=== PATIENT | male | born 1950 | race Caucasian/White ===

== ENCOUNTER 2017-02-20 13:33 | Emergency (ER) | payer MEDICARE, BC ==
[2017-02-20] MEDS ORDERED: Sodium Chloride 0.9% 10 ML Syringe FLUSH PRN ×2 (13:56→14:52)
[2017-02-20] MEDS ORDERED: HYDROmorphone 1 MG/ML Syringe IVPUSH ONE (13:57)
[2017-02-20] MEDS ORDERED: Ondansetron 4 MG/2 ML SDV IV ONE (13:57)
[2017-02-20] MEDS ORDERED: Sodium Chloride 0.9% 1,000 ML IV ONE ×2 (13:57→16:16)
[2017-02-20] MEDS ORDERED: Clindamycin Phosphate 900 MG in Sodium Chloride 0.9% 100 ML IV ONE (14:51)
[2017-02-20] MEDS ORDERED: Vancomycin 500 MG SDV IV ONE (14:52)
[2017-02-20] MEDS ORDERED: Meropenem 1 GM in Sodium Chloride 0.9% 100 ML IV ONE (14:53)
[2017-02-20] MEDS ORDERED: Insulin Regular, Human 100 Units/ML 3 ML Vial SUBCUT ONE (15:16)
[2017-02-20] MEDS ORDERED: Vancomycin 2 GM in Sodium Chloride 0.9% 500 ML IV ONE (15:30)
--- NOTE | 2017-02-20 16:44 | EDM.PDOC ---
Scribed by Pao Carmona 02/20/17 [id number] for Nelson Magallanes MD ED HPI GENERAL MEDICAL PROBLEM - General Chief Complaint: Skin Complaint Stated Complaint: [id number] LUMP ON INSIDE OF LEG Time Seen by Provider: 02/20/17 13:52 Source of Information: Reports: Patient, RN, RN Notes Reviewed History Limitations: Reports: No Limitations - History of Present Illness INITIAL COMMENTS - FREE TEXT/NARRATIVE: Patient presents to ER with complaint of pain to the left buttock/scrotum area. He states he has had an ingrown hair that because an abscess in the past. He states he feels this is happening again. Patient states he has been having fever and chills the past few days. Onset: Gradual Duration: Constant, Getting Worse Location: Reports: Other (buttock/scrotum) Quality: Reports: Ache Severity: Severe Improves with: Reports: None Worsens with: Reports: None Associated Symptoms: Reports: No Other Symptoms - Related Data Allergies Allergy/AdvReac Type Severity Reaction Status Date / Time furosemide Allergy Cannot Verified 02/20/17 13:47 Remember nifedipine Allergy Cannot Verified 02/20/17 13:47 Remember rosuvastatin [From Crestor] Allergy Cannot Verified 02/20/17 13:47 Remember CALCIUM CONTAINING COMPOUNDS Allergy Cannot Uncoded 02/20/17 13:47 Remember Home Meds: Home Meds Aspirin [Ecotrin] 81 mg PO DAILY 05/30/16 [History] Doxycycline [Vibramycin] 100 mg PO BID 05/30/16 [History] Hydrochlorothiazide 25 mg PO DAILY 05/30/16 [History] Labetalol [Normodyne] 300 mg PO BID 05/30/16 [History] Losartan [Cozaar] 100 mg PO DAILY 05/30/16 [History] Tamsulosin [Flomax] 0.4 mg PO DAILY 05/30/16 [History] Ubidecarenone [Coenzyme Q-10] 1 cap PO DAILY 05/30/16 [History] atorvaSTATin [Lipitor] 40 mg PO DAILY 05/30/16 [History] cloNIDine [Catapres] 0.2 mg PO TID 05/30/16 [History] metFORMIN HCl [Metformin HCl] 1,000 mg PO BID 05/30/16 [History] Social & Family History - Family History Family Medical History: Noncontributory ED ROS GENERAL - Review of Systems Review Of Systems: ROS reveals no pertinent complaints other than HPI. ED EXAM, SKIN/RASH Exam: See Below Exam Limited By: No Limitations General Appearance: Alert, WD/WN, No Apparent Distress, Obese, Other (acutely ill but nontoxic appearing) Eye Exam: Bilateral Eye: Normal Inspection Ears: Normal External Exam, Hearing Grossly Normal Nose: Normal Inspection, Normal Mucosa, No Blood Throat/Mouth: Normal Lips, Normal Gums, Normal Oropharynx, Normal Voice, No Airway Compromise, Other (dry oral membranes) Head: Atraumatic, Normocephalic Neck: Normal Inspection, Supple, Non-Tender, Full Range of Motion Respiratory/Chest: No Respiratory Distress, Lungs Clear, Normal Breath Sounds, No Accessory Muscle Use, Chest Non-Tender Cardiovascular: Normal Peripheral Pulses, Regular Rate, Rhythm, No Edema, No Gallop, No JVD, No Murmur, No Rub, Tachycardia GI/Abdominal: Normal Bowel Sounds, Soft, Non-Tender, No Organomegaly, No Distention, No Abnormal Bruit, No Mass (Male) Exam: Other (Left scrotum swollen/edematous/painful erythematous/ warm. Extends into the left buttock. Subcutaneous crepitus. ) Back Exam: Normal Inspection, Full Range of Motion, NT Extremities: Normal Inspection, Normal Range of Motion, Non-Tender, No Pedal Edema, Normal Capillary Refill Neurological: Alert, Oriented, CN II-XII Intact, Normal Cognition, Normal Gait, Normal Reflexes, No Motor/Sensory Deficits Psychiatric: Normal Affect, Normal Mood Skin: Warm, Dry Course - Vital Signs Last Recorded V/S: Last Vital Signs Temp 37.0 C 02/20/17 13:53 Pulse 101 H 02/20/17 13:53 Resp 20 02/20/17 13:53 BP 179/94 H 02/20/17 13:53 Pulse Ox 98 02/20/17 13:53 - Orders/Labs/Meds Orders: Active Orders 24 hr Category Date Time Status Blood Glucose Check, Bedside [RC] ONETIME Care 02/20/17 13:56 Active Peripheral IV Care [RC] . DIRECTED Care 02/20/17 13:57 Active Peripheral IV Care [RC] . DIRECTED Care 02/20/17 14:53 Active Pelvis wo Cont [CT] Urgent Exams 02/20/17 14:54 Ordered Pelvis wo Cont [CT] Urgent Exams 02/20/17 14:54 Taken CULTURE BLOOD [BC] Stat Lab 02/20/17 14:10 Results CULTURE BLOOD [BC] Stat Lab 02/20/17 14:18 Results UA W/MICROSCOPIC [URIN] Stat Lab 02/20/17 16:38 Ordered Sodium Chloride 0.9% [Normal Saline] 1,000 ml Med 02/20/17 16:16 Active IV .BOLUS Sodium Chloride 0.9% [Saline Flush] Med 02/20/17 13:56 Active 10 ml FLUSH ASDIRECTED PRN Sodium Chloride 0.9% [Saline Flush] Med 02/20/17 14:52 Active 10 ml FLUSH ASDIRECTED PRN Vancomycin 2 gm Med 02/20/17 15:30 Active Sodium Chloride 0.9% [Normal Saline] 500 ml IV ONETIME Blood Culture x2 Reflex Set [OM.PC] Stat Oth 02/20/17 13:56 Ordered Peripheral IV Insertion Adult [OM.PC] Stat Oth 02/20/17 13:56 Ordered Peripheral IV Insertion Adult [OM.PC] Stat Oth 02/20/17 14:53 Ordered Medication Orders Vancomycin HCl 2 gm/ Sodium (Chloride) 500 mls @ 333.333 mls/hr IV ONETIME ONE Stop: 02/20/17 16:59 Last Admin: 02/20/17 16:01 Dose: 333.333 mls/hr Sodium Chloride (Normal Saline) 1,000 mls @ 999 mls/hr IV .BOLUS ONE Stop: 02/20/17 17:16 Last Admin: 02/20/17 16:34 Dose: 999 mls/hr Sodium Chloride (Saline Flush) 10 ml FLUSH ASDIRECTED PRN PRN Reason: Keep Vein Open Last Admin: 02/20/17 14:33 Dose: 10 ml Sodium Chloride (Saline Flush) 10 ml FLUSH ASDIRECTED PRN PRN Reason: Keep Vein Open Labs: Laboratory Tests 02/20/17 02/20/17 02/20/17 Range/Units 14:18 14:18 14:18 WBC 20.9 H (5.0-10.0) 10^3/uL RBC 4.77 (4.6-6.2) 10^6/uL Hgb 13.7 L (14.0-18.0) g/dL Hct 40.7 (40.0-54.0) % MCV 85.3 (80-100) fL MCH 28.7 (27.0-34.0) pg MCHC 33.7 (33.0-35.0) g/dL Plt Count 229 (150-450) 10^3/uL Neut % (Auto) 87.8 H (42.2-75.2) % Lymph % (Auto) 5.2 L (20.5-50.1) % Tate % (Auto) 6.9 (2-8) % Eos % (Auto) 0.0 L (1.0-3.0) % Baso % (Auto) 0.1 (0.0-1.0) % Sodium 130 L (135-145) mmol/L Potassium 4.6 (3.6-5.0) mmol/L Chloride 87 L (101-111) mmol/L Carbon Dioxide 25.0 (21.0-31.0) mmol/L Anion Gap 22.6 BUN 28 H (7-18) mg/dL Creatinine 1.4 H (0.6-1.3) mg/dL Est Cr Clr Drug Dosing 52.60 mL/min Estimated GFR (MDRD) 51 BUN/Creatinine Ratio 20.00 Glucose 488 H* (74-105) mg/dL Lactic Acid 3.0 H (0.5-2.2) mmol/L Calcium 10.0 (8.4-10.2) mg/dl Total Bilirubin 0.7 (0.2-1.0) mg/dL AST 22 (10-42) IU/L ALT 15 (10-60) IU/L Alkaline Phosphatase 95 (42-121) IU/L C-Reactive Protein (0.0-1.3) mg/dL Total Protein 7.3 (6.7-8.2) g/dl Albumin 2.9 L (3.2-5.5) g/dl Globulin 4.4 Albumin/Globulin Ratio 0.66 /12/30 Range/Units 14:18 WBC (5.0-10.0) 10^3/uL RBC (4.6-6.2) 10^6/uL Hgb (14.0-18.0) g/dL Hct (40.0-54.0) % MCV (80-100) fL MCH (27.0-34.0) pg MCHC (33.0-35.0) g/dL Plt Count (150-450) 10^3/uL Neut % (Auto) (42.2-75.2) % Lymph % (Auto) (20.5-50.1) % Tate % (Auto) (2-8) % Eos % (Auto) (1.0-3.0) % Baso % (Auto) (0.0-1.0) % Sodium (135-145) mmol/L Potassium (3.6-5.0) mmol/L Chloride (101-111) mmol/L Carbon Dioxide (21.0-31.0) mmol/L Anion Gap BUN (7-18) mg/dL Creatinine (0.6-1.3) mg/dL Est Cr Clr Drug Dosing mL/min Estimated GFR (MDRD) BUN/Creatinine Ratio Glucose (74-105) mg/dL Lactic Acid (0.5-2.2) mmol/L Calcium (8.4-10.2) mg/dl Total Bilirubin (0.2-1.0) mg/dL AST (10-42) IU/L ALT (10-60) IU/L Alkaline Phosphatase (42-121) IU/L C-Reactive Protein > 20.0 H (0.0-1.3) mg/dL Total Protein (6.7-8.2) g/dl Albumin (3.2-5.5) g/dl Globulin Albumin/Globulin Ratio Meds: Medications Generic Name Dose Route Start Last Admin Trade Name Freq PRN Reason Stop Dose Admin Vancomycin HCl 2 gm/ Sodium 500 mls @ 333.333 mls/hr 02/20/17 15:30 02/20/17 16:01 Chloride IV 02/20/17 16:59 333.333 mls/hr ONETIME ONE Administration Sodium Chloride 1,000 mls @ 999 mls/hr 02/20/17 16:16 02/20/17 16:34 Normal Saline IV 02/20/17 17:16 999 mls/hr .BOLUS ONE Administration Sodium Chloride 10 ml 02/20/17 13:56 02/20/17 14:33 Saline Flush FLUSH 10 ml ASDIRECTED PRN Administration Keep Vein Open Sodium Chloride 10 ml 02/20/17 14:52 Saline Flush FLUSH ASDIRECTED PRN Keep Vein Open Discontinued Medications Generic Name Dose Route Start Last Admin Trade Name Shaye PRN Reason Stop Dose Admin Hydromorphone HCl 1 mg 02/20/17 13:57 02/20/17 14:31 Dilaudid IVPUSH 02/20/17 13:58 1 mg ONETIME ONE Administration Sodium Chloride 1,000 mls @ 999 mls/hr 02/20/17 13:57 02/20/17 14:32 Normal Saline IV 02/20/17 14:57 999 mls/hr .BOLUS ONE Administration Clindamycin Phosphate 900 mg/ 106 mls @ 200 mls/hr 02/20/17 14:51 02/20/17 16 :07 Sodium Chloride IV 02/20/17 15:22 200 mls/hr ONETIME ONE Administration Meropenem 1 gm/ Sodium 100 mls @ 200 mls/hr 02/20/17 14:53 02/20/17 15:19 Chloride IV 02/20/17 15:22 200 mls/hr ONETIME ONE Administration Insulin Human Regular 10 unit 02/20/17 15:16 02/20/17 15:51 Humulin R SUBCUT 02/20/17 15:17 10 units ONETIME ONE Administration Protocol Ondansetron HCl 4 mg 02/20/17 13:57 02/20/17 14:32 Zofran IV 02/20/17 13:58 4 mg ONETIME ONE Administration - Radiology Interpretation Free Text/Narrative:: CT Pelvis: Consistent with scrotal and perineal area. See rad report. Departure - Departure Time of Disposition: 16:36 Disposition: DC/Tfer to Acute Hospital 02 Condition: Critical Clinical Impression: Necrotizing fasciitis, Cellulitis of scrotum, Sepsis - Discharge Information Referrals: Aj Rick MD [Primary Care Provider] - Forms: ED Department Discharge, Interfacility Transfer EMTALA - My Orders Last 24 Hours: My Active Orders 02/20/17 13:56 Blood Glucose Check, Bedside [RC] ONETIME Sodium Chloride 0.9% [Saline Flush] 10 ml FLUSH ASDIRECTED PRN Blood Culture x2 Reflex Set [OM.PC] Stat Peripheral IV Insertion Adult [OM.PC] Stat 02/20/17 13:57 Peripheral IV Care [RC] . DIRECTED 02/20/17 14:10 CULTURE BLOOD [BC] Stat 02/20/17 14:18 CULTURE BLOOD [BC] Stat 02/20/17 16:38 UA W/MICROSCOPIC [URIN] Stat - Assessment/Plan Last 24 Hours: My Active Orders 02/20/17 13:56 Blood Glucose Check, Bedside [RC] ONETIME Sodium Chloride 0.9% [Saline Flush] 10 ml FLUSH ASDIRECTED PRN Blood Culture x2 Reflex Set [OM.PC] Stat Peripheral IV Insertion Adult [OM.PC] Stat 02/20/17 13:57 Peripheral IV Care [RC] . DIRECTED 02/20/17 14:10 CULTURE BLOOD [BC] Stat 02/20/17 14:18 CULTURE BLOOD [BC] Stat 02/20/17 16:38 UA W/MICROSCOPIC [URIN] Stat I have read and agree with the documentation that has been completed regarding this visit. By signing this record, I attest that the documentation was completed in my physical presence and is an accurate record of the encounter.
--- NOTE | 2017-02-20 16:47 | CT ---
Clinical history: 67-year-old obese diabetic male with fever/chills, WBC greater than 20,000, and cli nical "cellulitis". Fasciitis? Scan technique: Volume acquisition of data emergency unenhanced CT scan of the pelvis groin and scrot um obtained with patient lying supine on the Siemens multi slice CT scanner [place], [place]. All data archived in the PACS system for storage, reformatting and study. Interpretation: Abnormal. 1. Extensive collection of subcutaneous gas) largest collection measures 18 x 4.5 cm) involving butto cks primarily on the left that extends up near the anus and into the scrotum. Necrotizing fasciitis a nd/or abscess strong consideration. 2. Surrounding edema left buttocks/groin and diffuse scrotal wall thickening. (Small amount of scrota l air on the right) No current evidence of inguinal, pelvic or intraperitoneal extension of the inflammatory process. 3. Symmetrically normal appearing testicles. 4. Bilateral total hip prostheses. No other foreign bodies. 5. Multilevel lower lumbar disc disease and hypertrophic arthritic changes of the spine. CONCLUSION: Necrotizing fasciitis peroneum (left greater than right) and scrotum.
[2017-02-20 17:45] VITALS: BP 148/72
== END 2017-02-20 16:45 ==
LOC: DL.ED 13:33
DX: A41.9 Sepsis, unspecified organism (principal); M72.6 Necrotizing fasciitis; N49.2 Inflammatory disorders of scrotum; Z88.8 Allergy status to other drugs, medicaments and biological substances; Z79.82 Long term (current) use of aspirin; Z79.899 Other long term (current) drug therapy
CPT/HCPCS: 36415; 72192; 80053; 81001; 83605; 85025; 86140; 87040; 96365; 96366; 96367; 96375; 99284; J1170; J1815; J2185; J2405; J3370; J7030; J7040; J7050; S0077

== ENCOUNTER 2017-03-11 11:50 | Emergency (ER) | payer MEDICARE, BC ==
[2017-03-11 13:00] VITALS: BP 117/82
[2017-03-11] MEDS ORDERED: Penicillin G Benzathine/Procaine 600-600 1.2 Millunits/2 ML Syringe IM ONE (13:18)
--- NOTE | 2017-03-11 13:36 | EDM.PDOC ---
ED HPI GENERAL MEDICAL PROBLEM - General Chief Complaint: ENT Problem Stated Complaint: SENT BY DR PATTERSON Time Seen by Provider: 03/11/17 13:27 Source of Information: Reports: Patient, RN, RN Notes Reviewed History Limitations: Reports: No Limitations - History of Present Illness INITIAL COMMENTS - FREE TEXT/NARRATIVE: Patient presents to the ER with c/o throat pain. He states this began last evening and has progressively gotten worse. He denies fever, chills, chest pain sob, nausea and vomiting. Patient denies pain in the ear or sinus drainage. He states he has been having a non-productive cough. Onset: Gradual Onset Date: 03/10/17 Location: Reports: Other (throat) Quality: Reports: Ache Severity: Mild Improves with: Reports: None Worsens with: Reports: None Associated Symptoms: Reports: No Other Symptoms Throat Pain Score (Numeric/FACES): 4 - Related Data Allergies Allergy/AdvReac Type Severity Reaction Status Date / Time furosemide Allergy Cannot Verified 03/11/17 12:50 Remember nifedipine Allergy Cannot Verified 03/11/17 12:50 Remember rosuvastatin [From Crestor] Allergy Cannot Verified 03/11/17 12:50 Remember CALCIUM CONTAINING COMPOUNDS Allergy Cannot Uncoded 03/11/17 12:50 Remember Home Meds: Home Meds Aspirin [Ecotrin] 81 mg PO DAILY 05/30/16 [History] Hydrochlorothiazide 25 mg PO DAILY PRN 05/30/16 [History] Labetalol [Normodyne] 300 mg PO Q8HR 05/30/16 [History] Tamsulosin [Flomax] 0.4 mg PO DAILY 05/30/16 [History] Ubidecarenone [Coenzyme Q-10] 1 cap PO DAILY 05/30/16 [History] atorvaSTATin [Lipitor] 40 mg PO DAILY 05/30/16 [History] Acetaminophen/oxyCODONE [Percocet 325-5 MG] 1 tab PO Q6HR PRN 03/01/17 [History] Cholecalciferol (Vitamin D3) [Vitamin D3] 1,000 unit PO DAILY 03/01/17 [History] Insulin Glargine,Hum.Rec.Anlog [Lantus Solostar] 45 units SQ QPM 03/01/17 [ History] Multivitamin [Multi-Day Vitamins] 1 each PO DAILY 03/01/17 [History] SitaGLIPtin [Januvia] 50 mg PO DAILY 03/01/17 [History] glipiZIDE [Glipizide Xl] 5 mg PO DAILY 03/01/17 [History] cloNIDine HCl [Catapres] 0.4 mg PO BID 03/03/17 [History] Past Medical History Cardiovascular History: Reports: High Cholesterol, Hypertension Musculoskeletal History: Reports: Back Pain, Chronic Endocrine/Metabolic History: Reports: Diabetes, Type II Dermatologic History: Reports: Cellulitis, Other (See Below) Other Dermatologic History: ingrown hair-proceeded to gangrene-debridement- wound vac to be placed. - Infectious Disease History Infectious Disease History: Reports: Chicken Pox - Past Surgical History Musculoskeletal Surgical History: Reports: Hip Replacement, Other (See Below) Other Musculoskeletal Surgeries/Procedures:: Back Surgery Social & Family History - Family History Family Medical History: Noncontributory - Tobacco Use Smoking Status *Q: Former Smoker Used Tobacco, but Quit: Yes Month Tobacco Last Used: unknown Second Hand Smoke Exposure: No - Caffeine Use Caffeine Use: Reports: Coffee - Recreational Drug Use Recreational Drug Use: No ED ROS GENERAL - Review of Systems Review Of Systems: ROS reveals no pertinent complaints other than HPI. ED EXAM, GI/ABD - Physical Exam Exam: See Below Exam Limited By: No Limitations General Appearance: Alert, WD/WN, No Apparent Distress Eyes: Bilateral: Normal Appearance Ears: Normal External Exam, Normal Canal, Hearing Grossly Normal, Normal TMs Nose: Normal Inspection, Normal Mucosa, No Blood Throat/Mouth: Normal Teeth, Normal Gums, Normal Voice, No Airway Compromise, Inflammation, Other Head: Atraumatic, Normocephalic Neck: Normal Inspection, Supple, Non-Tender, Full Range of Motion Respiratory/Chest: No Respiratory Distress, Lungs Clear, Normal Breath Sounds, No Accessory Muscle Use, Chest Non-Tender Cardiovascular: Normal Peripheral Pulses, Regular Rate, Rhythm, No Edema, No Gallop, No JVD, No Murmur, No Rub GI/Abdominal Exam: Normal Bowel Sounds, Soft, Non-Tender, No Organomegaly, No Distention, No Abnormal Bruit, No Mass, Pelvis Stable (Male) Exam: Deferred Rectal (Males) Exam: Deferred Back Exam: Normal Inspection, Full Range of Motion Extremities: Normal Inspection, Normal Range of Motion, Non-Tender, No Pedal Edema, Normal Capillary Refill Neurological: Alert, Oriented, Normal Cognition, Normal Gait, Normal Reflexes, No Motor/Sensory Deficits Psychiatric: Normal Affect, Normal Mood Skin Exam: Warm, Dry, Intact, Normal Color, No Rash Lymphatic: No Adenopathy Course - Vital Signs Last Recorded V/S: Last Vital Signs Temp 97.4 F 03/11/17 12:56 Pulse 79 03/11/17 12:56 Resp 20 03/11/17 12:56 BP 117/82 03/11/17 12:56 Pulse Ox 99 03/11/17 12:56 - Orders/Labs/Meds Meds: Medications Discontinued Medications Generic Name Dose Route Start Last Admin Trade Name Freq PRN Reason Stop Dose Admin Penicillin G Procaine/Benzathine 1.2 millunits 03/11/17 13:18 Bicillin C-R 600/600 IM 03/11/17 13:19 ONETIME ONE Departure - Departure Time of Disposition: 13:37 Disposition: Home, Self-Care 01 Condition: Good Clinical Impression: Streptococcus pharyngitis - Discharge Information Instructions: Strep Throat, [id number] Additional Instructions: Follow up with your primary care provider. Azithromycin 500mg orally once today Azithromycin 250mg orally once daily x 4 days Salt water gargles Tylenol every 4 hours as needed for pain or fever Ibuprofen every 6-8 hours as needed for pain or fever
== END 2017-03-11 13:48 | disposition home or self-care (01) ==
LOC: DL.ED 11:50
DX: J02.0 Streptococcal pharyngitis (principal); E78.00 Pure hypercholesterolemia, unspecified; I10 Essential (primary) hypertension; E11.9 Type 2 diabetes mellitus without complications; Z88.8 Allergy status to other drugs, medicaments and biological substances; Z79.899 Other long term (current) drug therapy; Z79.82 Long term (current) use of aspirin; Z79.4 Long term (current) use of insulin; Z87.891 Personal history of nicotine dependence
CPT/HCPCS: 87430; 96372; 99283; J0558

== ENCOUNTER 2017-03-21 20:04 | Emergency (ER) | payer MEDICARE, BC ==
--- NOTE | 2017-03-21 22:50 | EDM.PDOC ---
ED HPI GENERAL MEDICAL PROBLEM - General Chief Complaint: Cardiovascular Problem Stated Complaint: CHECK ON BLOOD PRESSURE [id number] Time Seen by Provider: 03/21/17 20:45 Source of Information: Reports: Patient, Family History Limitations: Reports: No Limitations - History of Present Illness INITIAL COMMENTS - FREE TEXT/NARRATIVE: C/o feeling dizzy and low blood pressure at home. Notes wound to groin that he is having dressing changes de luna twice daily. Recent change in BP medications. - Related Data Allergies Allergy/AdvReac Type Severity Reaction Status Date / Time furosemide Allergy Cannot Verified 03/21/17 08:39 Remember nifedipine Allergy Cannot Verified 03/21/17 08:39 Remember rosuvastatin [From Crestor] Allergy Cannot Verified 03/21/17 08:39 Remember CALCIUM CONTAINING COMPOUNDS Allergy Cannot Uncoded 03/21/17 08:39 Remember Home Meds: Home Meds Aspirin [Ecotrin] 81 mg PO DAILY 05/30/16 [History] Hydrochlorothiazide 25 mg PO DAILY PRN 05/30/16 [History] Labetalol [Normodyne] 300 mg PO Q8HR 05/30/16 [History] Tamsulosin [Flomax] 0.4 mg PO DAILY 05/30/16 [History] Ubidecarenone [Coenzyme Q-10] 1 cap PO DAILY 05/30/16 [History] atorvaSTATin [Lipitor] 40 mg PO DAILY 05/30/16 [History] Acetaminophen/oxyCODONE [Percocet 325-5 MG] 1 tab PO Q6HR PRN 03/01/17 [History] Cholecalciferol (Vitamin D3) [Vitamin D3] 1,000 unit PO DAILY 03/01/17 [History] Insulin Glargine,Hum.Rec.Anlog [Lantus Solostar] 45 units SQ QPM 03/01/17 [ History] SitaGLIPtin [Januvia] 50 mg PO DAILY 03/01/17 [History] glipiZIDE [Glipizide Xl] 5 mg PO DAILY 03/01/17 [History] cloNIDine HCl [Catapres] 0.4 mg PO BID 03/03/17 [History] Past Medical History Cardiovascular History: Reports: High Cholesterol, Hypertension Musculoskeletal History: Reports: Back Pain, Chronic Endocrine/Metabolic History: Reports: Diabetes, Type II Dermatologic History: Reports: Cellulitis, Other (See Below) Other Dermatologic History: ingrown hair-proceeded to gangrene-debridement- wound vac to be placed. - Infectious Disease History Infectious Disease History: Reports: Chicken Pox - Past Surgical History Musculoskeletal Surgical History: Reports: Hip Replacement, Other (See Below) Other Musculoskeletal Surgeries/Procedures:: Back Surgery Social & Family History - Family History Family Medical History: Noncontributory - Tobacco Use Smoking Status *Q: Never Smoker Used Tobacco, but Quit: Yes Month Tobacco Last Used: unknown Second Hand Smoke Exposure: No - Caffeine Use Caffeine Use: Reports: Coffee - Recreational Drug Use Recreational Drug Use: No ED ROS GENERAL - Review of Systems Review Of Systems: See Below Constitutional: Denies: Fever HEENT: Reports: No Symptoms Respiratory: Reports: No Symptoms Cardiovascular: Reports: Lightheadedness. Denies: Palpitations GI/Abdominal: Reports: No Symptoms Skin: Reports: Wound (Deep wpund to left groin from pelvic abscess) ED EXAM, GENERAL - Physical Exam Exam: See Below Exam Limited By: No Limitations General Appearance: Alert, No Apparent Distress Eye Exam: Bilateral Eye: EOMI, PERRL Ears: Normal External Exam, Normal TMs Nose: Normal Inspection Throat/Mouth: Normal Inspection Head: Atraumatic, Normocephalic Neck: Normal Inspection, Non-Tender, Full Range of Motion Respiratory/Chest: No Respiratory Distress, Lungs Clear, Normal Breath Sounds Cardiovascular: Normal Peripheral Pulses, Regular Rate, Rhythm GI/Abdominal: Normal Bowel Sounds, Soft. No: Non-Tender (mild suprapubic) Extremities: Leg Pain (left upper) Skin Exam: Warm, Wound/Incision (deep wound left groin mild erythema to base , packing moist, scant serous yellow discharge. ) Course - Vital Signs Last Recorded V/S: Last Vital Signs Temp 97.4 F 03/22/17 02:00 Pulse 88 03/22/17 02:00 Resp 16 03/22/17 02:00 BP 106/74 03/22/17 02:00 Pulse Ox 100 03/22/17 02:00 Orthostatic Blood Pressure [ 141/68 Standing] Orthostatic Blood Pressure [ 143/75 Sitting] Orthostatic Blood Pressure [ 105/91 Supine] - Orders/Labs/Meds Labs: Laboratory Tests 03/21/17 03/21/17 03/21/17 Range/Units 21:40 21:40 21:40 WBC 9.9 (5.0-10.0) 10^3/uL RBC 4.26 L (4.6-6.2) 10^6/uL Hgb 12.0 L D (14.0-18.0) g/dL Hct 36.5 L (40.0-54.0) % MCV 85.7 (80-100) fL MCH 28.2 (27.0-34.0) pg MCHC 32.9 L (33.0-35.0) g/dL Plt Count 249 (150-450) 10^3/uL Neut % (Auto) 55.3 (42.2-75.2) % Lymph % (Auto) 29.3 (20.5-50.1) % Candler % (Auto) 10.4 H (2-8) % Eos % (Auto) 4.7 H (1.0-3.0) % Baso % (Auto) 0.3 (0.0-1.0) % PT 10.5 (9.0-12.0) SEC INR 1.0 (0.9-1.2) Sodium 136 (135-145) mmol/L Potassium 4.4 (3.6-5.0) mmol/L Chloride 96 L (101-111) mmol/L Carbon Dioxide 27.0 (21.0-31.0) mmol/L Anion Gap 17.4 BUN 49 H (7-18) mg/dL Creatinine 1.9 H (0.6-1.3) mg/dL Est Cr Clr Drug Dosing 38.76 mL/min Estimated GFR (MDRD) 36 BUN/Creatinine Ratio 25.78 Glucose 278 H (74-105) mg/dL Lactic Acid (0.5-2.2) mmol/L Calcium 9.5 (8.4-10.2) mg/dl Total Bilirubin 0.3 (0.2-1.0) mg/dL AST 28 (10-42) IU/L ALT 43 (10-60) IU/L Alkaline Phosphatase 79 (42-121) IU/L CK-MB (CK-2) (0.4-4.7) ng/mL Troponin I 0.02 (0.00-0.02) ng/ml C-Reactive Protein (0.0-1.3) mg/dL Total Protein 7.5 (6.7-8.2) g/dl Albumin 3.4 (3.2-5.5) g/dl Globulin 4.1 Albumin/Globulin Ratio 0.83 03/21/17 03/21/17 03/21/17 Range/Units 21:40 21:40 21:40 WBC (5.0-10.0) 10^3/uL RBC (4.6-6.2) 10^6/uL Hgb (14.0-18.0) g/dL Hct (40.0-54.0) % MCV (80-100) fL MCH (27.0-34.0) pg MCHC (33.0-35.0) g/dL Plt Count (150-450) 10^3/uL Neut % (Auto) (42.2-75.2) % Lymph % (Auto) (20.5-50.1) % Candler % (Auto) (2-8) % Eos % (Auto) (1.0-3.0) % Baso % (Auto) (0.0-1.0) % PT (9.0-12.0) SEC INR (0.9-1.2) Sodium (135-145) mmol/L Potassium (3.6-5.0) mmol/L Chloride (101-111) mmol/L Carbon Dioxide (21.0-31.0) mmol/L Anion Gap BUN (7-18) mg/dL Creatinine (0.6-1.3) mg/dL Est Cr Clr Drug Dosing mL/min Estimated GFR (MDRD) BUN/Creatinine Ratio Glucose (74-105) mg/dL Lactic Acid 1.3 (0.5-2.2) mmol/L Calcium (8.4-10.2) mg/dl Total Bilirubin (0.2-1.0) mg/dL AST (10-42) IU/L ALT (10-60) IU/L Alkaline Phosphatase (42-121) IU/L CK-MB (CK-2) 2.10 (0.4-4.7) ng/mL Troponin I (0.00-0.02) ng/ml C-Reactive Protein 0.9 (0.0-1.3) mg/dL Total Protein (6.7-8.2) g/dl Albumin (3.2-5.5) g/dl Globulin Albumin/Globulin Ratio - Re-Assessments/Exams Free Text/Narrative Re-Assessment/Exam: 03/23/17 06:58 No orthostatic changes or signs of sepsis. TC consult with Dr Dyer, Continue to monitor BP decres Labetolol. Clinic early week. Patient and agreeable with plan. Departure - Departure Time of Disposition: 01:22 Disposition: Home, Self-Care 01 Clinical Impression: Groin abscess Hypotension Qualifiers: Hypotension type: unspecified hypotension type Qualified Code(s): I95.9 - Hypotension, unspecified Instructions: Hypotension, [id number] Referrals: Aj Rick MD [Primary Care Provider] - Forms: ED Department Discharge Additional Instructions: Decrease Bumex every other day Labetolol 100mg twice daily Recheck blood pressures twice daily follow up if less than 90 systolic and greater than 160/
[2017-03-22 01:44] VITALS: BP 106/74
--- NOTE | 2017-03-25 15:03 | EKG ---
03/21/2017- BARBIE HURTADO - A 12-lead EKG shows atrial fibrillation with heart rate of 91. Ventricular premature complexes noted. No significant ST elevation or ST depression noted on this 12-lead EKG. [facility] /[id number]
== END 2017-03-22 02:03 | disposition home or self-care (01) ==
LOC: DL.ED 20:04
DX: I95.9 Hypotension, unspecified (principal); L02.214 Cutaneous abscess of groin; I10 Essential (primary) hypertension; E78.00 Pure hypercholesterolemia, unspecified; E11.9 Type 2 diabetes mellitus without complications; Z96.649 Presence of unspecified artificial hip joint; Z98.890 Other specified postprocedural states; Z87.891 Personal history of nicotine dependence; Z79.4 Long term (current) use of insulin; Z79.899 Other long term (current) drug therapy; Z79.82 Long term (current) use of aspirin; Z88.8 Allergy status to other drugs, medicaments and biological substances; N49.3 Fournier gangrene
CPT/HCPCS: 36415; 71010; 74176; 80053; 82553; 83605; 84484; 85025; 85610; 86140; 93005; 93010; 99211; 99284; 99285

== ENCOUNTER 2017-07-21 19:59 | Inpatient (IN) | payer MEDICARE, BC ==
[2017-07-21] MEDS ORDERED: Vancomycin 1 GM in Sodium Chloride 0.9% 500 ML IV ONE (21:20)
--- NOTE | 2017-07-21 21:51 | EDM.PDOC ---
ED HPI GENERAL MEDICAL PROBLEM - General Chief Complaint: Skin Complaint Stated Complaint: LEFT SIDE OF FACE SWOLLEN [id number] Time Seen by Provider: 07/21/17 20:10 Source of Information: Reports: Patient History Limitations: Reports: No Limitations - History of Present Illness INITIAL COMMENTS - FREE TEXT/NARRATIVE: This 67 yo male patient reports to the ED with swelling to the left side of his face. The patient reports the symptoms started yesterday and have gotten much worse since then. The patient reports he has had a history of cellulitis for which he has been admitted in the past. Onset Date: 07/20/17 Duration: Constant, Getting Worse Location: Reports: Face (left side of face) Quality: Reports: Ache, Dull Severity: Moderate Improves with: Reports: None Worsens with: Reports: None Left Face Pain Score (Numeric/FACES): 5 - Related Data Allergies Allergy/AdvReac Type Severity Reaction Status Date / Time furosemide Allergy Cannot Verified 07/21/17 20:05 Remember nifedipine Allergy Cannot Verified 07/21/17 20:05 Remember rosuvastatin [From Crestor] Allergy Cannot Verified 07/21/17 20:05 Remember CALCIUM CONTAINING COMPOUNDS Allergy Cannot Uncoded 07/21/17 20:05 Remember Home Meds: Home Meds Aspirin [Ecotrin] 81 mg PO DAILY 05/30/16 [History] Ubidecarenone [Coenzyme Q-10] 1 cap PO DAILY 05/30/16 [History] atorvaSTATin [Lipitor] 40 mg PO DAILY 05/30/16 [History] Cholecalciferol (Vitamin D3) [Vitamin D3] 1,000 unit PO DAILY 03/01/17 [History] Insulin Glargine,Hum.Rec.Anlog [Lantus Solostar] 50 units SQ QPM 03/01/17 [ History] SitaGLIPtin [Januvia] 50 mg PO DAILY 03/01/17 [History] glipiZIDE [Glipizide Xl] 10 mg PO DAILY 03/01/17 [History] Labetalol [Normodyne] 100 mg PO BID 03/23/17 [History] Past Medical History Cardiovascular History: Reports: High Cholesterol, Hypertension Musculoskeletal History: Reports: Back Pain, Chronic Endocrine/Metabolic History: Reports: Diabetes, Type II, Obesity/BMI 30+ Dermatologic History: Reports: Cellulitis, Other (See Below) Other Dermatologic History: ingrown hair-proceeded to gangrene-debridement- wound vac to be placed. - Infectious Disease History Infectious Disease History: Reports: Chicken Pox - Past Surgical History Musculoskeletal Surgical History: Reports: Hip Replacement, Other (See Below) Other Musculoskeletal Surgeries/Procedures:: Back Surgery Social & Family History - Family History Family Medical History: Noncontributory - Tobacco Use Smoking Status *Q: Current Every Day Smoker Years of Tobacco use: 30 Packs/Tins Daily: 0.1 Used Tobacco, but Quit: Yes Month Tobacco Last Used: unknown Second Hand Smoke Exposure: No - Caffeine Use Caffeine Use: Reports: Coffee - Recreational Drug Use Recreational Drug Use: No ED ROS GENERAL - Review of Systems Review Of Systems: ROS reveals no pertinent complaints other than HPI. ED EXAM, SKIN/RASH Exam: See Below Exam Limited By: No Limitations General Appearance: Alert, WD/WN, Mild Distress Eye Exam: Left Eye: Other (lower eyelid inflammation and erythema), Bilateral Eye: EOMI, PERRL Ears: Normal External Exam, Normal Canal, Hearing Grossly Normal, Normal TMs Nose: Normal Mucosa, No Blood, Other (left lateral swelling (external)) Throat/Mouth: Normal Inspection, Normal Lips, Normal Teeth, Normal Gums, Normal Oropharynx, Normal Voice, No Airway Compromise Head: Atraumatic, Normocephalic Neck: Full Range of Motion, Lymphadenopathy (L) Respiratory/Chest: No Respiratory Distress, Lungs Clear, Normal Breath Sounds, No Accessory Muscle Use, Chest Non-Tender Cardiovascular: Normal Peripheral Pulses, Regular Rate, Rhythm, No Edema, No Gallop, No JVD, No Murmur, No Rub GI/Abdominal: Normal Bowel Sounds, Soft, Non-Tender, No Organomegaly, No Distention, No Abnormal Bruit, No Mass, Other (obese) (Male) Exam: Deferred Rectal (Males) Exam: Deferred Back Exam: Normal Inspection, Full Range of Motion, NT Extremities: Normal Inspection, Normal Range of Motion, Non-Tender, No Pedal Edema, Normal Capillary Refill Neurological: Alert, Oriented, CN II-XII Intact, Normal Cognition, Normal Gait, Normal Reflexes, No Motor/Sensory Deficits Psychiatric: Normal Affect, Normal Mood Skin: Erythema Location, Skin: Face Characteristics: Confluent, Erythematous Associated features: Warmth, Tenderness, Swelling, Inflammation. No: Crusting, Weeping Lymphatic: No Adenopathy Course - Vital Signs Last Recorded V/S: Last Vital Signs Temp 36.6 C 07/21/17 20:01 Pulse 116 H 07/21/17 20:01 Resp 18 07/21/17 20:01 BP 157/83 H 07/21/17 20:01 Pulse Ox 98 07/21/17 20:01 - Orders/Labs/Meds Orders: Active Orders 24 hr Category Date Time Status Max Facial Sinus wo Cont [CT] Urgent Exams 07/21/17 21:28 Ordered CULTURE BLOOD [BC] Stat Lab 07/21/17 20:34 Received CULTURE BLOOD [BC] Stat Lab 07/21/17 20:37 Results Vancomycin 1 gm Med 07/21/17 21:20 Active Sodium Chloride 0.9% [Normal Saline] 500 ml IV ONETIME Blood Culture x2 Reflex Set [OM.PC] Stat Oth 07/21/17 20:21 Ordered Medication Orders Vancomycin HCl 1 gm/ Sodium (Chloride) 500 mls @ 334 mls/hr IV ONETIME ONE Stop: 07/21/17 22:49 Labs: Laboratory Tests 07/21/17 07/21/17 07/21/17 Range/Units 20:34 20:34 20:34 WBC 17.7 H (5.0-10.0) 10^3/uL RBC 5.33 (4.6-6.2) 10^6/uL Hgb 15.1 D (14.0-18.0) g/dL Hct 43.9 (40.0-54.0) % MCV 82.4 D (80-100) fL MCH 28.3 (27.0-34.0) pg MCHC 34.4 (33.0-35.0) g/dL Plt Count 240 (150-450) 10^3/uL Neut % (Auto) 78.2 H (42.2-75.2) % Lymph % (Auto) 11.0 L (20.5-50.1) % [place] % (Auto) 10.5 H (2-8) % Eos % (Auto) 0.2 L (1.0-3.0) % Baso % (Auto) 0.1 (0.0-1.0) % Sodium 132 L (135-145) mmol/L Potassium 4.2 (3.6-5.0) mmol/L Chloride 94 L (101-111) mmol/L Carbon Dioxide 29.0 (21.0-31.0) mmol/L Anion Gap 13.2 BUN 21 H D (7-18) mg/dL Creatinine 1.4 H (0.6-1.3) mg/dL Est Cr Clr Drug Dosing 54.32 mL/min Estimated GFR (MDRD) 51 BUN/Creatinine Ratio 15.00 Glucose 221 H (74-105) mg/dL Lactic Acid 1.6 (0.5-2.2) mmol/L Calcium 9.0 (8.4-10.2) mg/dl Total Bilirubin 1.0 (0.2-1.0) mg/dL AST 24 (10-42) IU/L ALT 24 (10-60) IU/L Alkaline Phosphatase 83 (42-121) IU/L Total Protein 7.5 (6.7-8.2) g/dl Albumin 3.5 (3.2-5.5) g/dl Globulin 4.0 Albumin/Globulin Ratio 0.88 Meds: Medications Generic Name Dose Route Start Last Admin Trade Name Freq PRN Reason Stop Dose Admin Vancomycin HCl 1 gm/ Sodium 500 mls @ 334 mls/hr 07/21/17 21:20 Chloride IV 07/21/17 22:49 ONETIME ONE Departure - Departure Time of Disposition: 21:51 Disposition: Admitted As Inpatient 68 Condition: Fair Clinical Impression: Cellulitis Qualifiers: Site of cellulitis: face Qualified Code(s): L03.211 - Cellulitis of face - Discharge Information Referrals: PCP,None [Primary Care Provider] - Care Plan Goals: Discussed the examination and lab results with Dr. Calles. Dr. Calles accepted the patient for continued evaluation and management as an inpatient at [facility]. Vancomycin (1 gram) was ordered prior to the patient being admitted. - My Orders Last 24 Hours: My Active Orders 07/21/17 20:21 Blood Culture x2 Reflex Set [OM.PC] Stat 07/21/17 20:34 CULTURE BLOOD [BC] Stat 07/21/17 20:37 CULTURE BLOOD [BC] Stat 07/21/17 21:20 Vancomycin 1 gm Sodium Chloride 0.9% [Normal Saline] 500 ml IV ONETIME 07/21/17 21:28 Max Facial Sinus wo Cont [CT] Urgent - Assessment/Plan Last 24 Hours: My Active Orders 07/21/17 20:21 Blood Culture x2 Reflex Set [OM.PC] Stat 07/21/17 20:34 CULTURE BLOOD [BC] Stat 07/21/17 20:37 CULTURE BLOOD [BC] Stat 07/21/17 21:20 Vancomycin 1 gm Sodium Chloride 0.9% [Normal Saline] 500 ml IV ONETIME 07/21/17 21:28 Max Facial Sinus wo Cont [CT] Urgent
[2017-07-21] MEDS ORDERED: Sodium Chloride 0.9% 1,000 ML IV SCH (23:30)
[2017-07-21] MEDS ORDERED: Morphine 2 MG/ML Syringe IVPUSH PRN (23:31)
[2017-07-21] MEDS ORDERED: Acetaminophen 325 MG Tab PO PRN (23:31)
[2017-07-21] MEDS ORDERED: Ondansetron 4 MG/2 ML SDV IVPUSH PRN (23:31)
[2017-07-21] MEDS ORDERED: Insulin Aspart 100 Units/ML 3 ML Pen SUBCUT SCH (23:45)
[2017-07-22] MEDS: Insulin Detemir 100 Units/ML 3 ML Pen SUBCUT SCH ×2 (00:21→21:47)
[2017-07-22] MEDS: Meropenem 1 GM SDV IVPUSH SCH ×3 (00:25→16:28)
--- NOTE | 2017-07-22 04:49 | HP ---
CHIEF COMPLAINT: Swelling and pain to the left side of the face. HISTORY OF PRESENT ILLNESS: Mr. 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 He received 2 weeks of IV antibiotics. The patient was apparently doing well up until yesterday. Since yesterday, he started having this swelling and pain to the left side of the face and noted to have cellulitis, which was getting worsened, so came to the emergency room. At this time, the patient complains of pain to the left side of the face. He grades the pain as 3 to 4/10 in intensity, which gets aggravated on palpation, relieved with pain medication, nonradiating type of pain, not associated with any nausea or vomiting. Denies any fevers, but complains of having intermittent chills. No complaints of chest pain. No complaints of shortness of breath. No complaints of abdominal pain. Denies any recent pimples at the face, which started off near the nose, at the bridge of the nose and then gradually progressed laterally towards the left side of the cheeks. The patient denies any recent bites. No spider bite or any insect bites noted. The patient denied any history of chest pains on exertion. No history of dyspnea on exertion. No history of orthopnea or paroxysmal nocturnal dyspnea. The patient denied any history of hematemesis, hematochezia, or melanotic stools. Normal bowel and bladder habits otherwise. REVIEW OF SYSTEMS: A complete review of system including skin, ear, nose, and throat, cardiovascular system, respiratory system, gastrointestinal system, genitourinary system, hematology, oncology, neurology, allergy, immunology were all evaluated and were negative except for the above-said notes. PAST MEDICAL HISTORY: Significant for hypertension, type 2 diabetes mellitus, hyperlipidemia, erectile dysfunction, history of gout, nephrolithiasis, chronic kidney disease, spinal cord tumor requiring resection back in 2010, history of perineal cellulitis with abscess requiring incision and drainage back in February of 2017, requiring long-term antibiotics at that time. PAST SURGICAL HISTORY: Significant for: 1. Total hip arthroplasty. 2. Lumbar disk surgery. 3. Abscess drainage. FAMILY HISTORY: Significant for heart disease and diabetes in his father and aneurysm in his mother. SOCIAL HISTORY: History of former smoker, but currently chews tobacco. History of occasional alcohol intake. No history of drug abuse. ALLERGIES: The patient noted to have allergies to calcium containing compounds, Crestor, furosemide, and nifedipine. HOME MEDICATIONS: Include: 1. Glipizide XL 10 mg daily. 2. Lipitor 40 mg daily. 3. Coenzyme Q10 daily. 4. Vitamin D3, 1000 units daily. 5. Aspirin 81 mg daily. 6. Labetalol 100 mg twice a day. 7. Insulin Lantus 50 units subcu q.p.m. 8. Sitagliptin, Januvia 50 mg daily. PHYSICAL EXAMINATION: Vital Signs: Temperature of 97.8, pulse of 116, blood pressure of 157/83, respiratory rate of 18, and saturating at 98% on room air. General Appearance: The patient is well oriented to time, place, and person. Follows commands spontaneously. Cardiovascular: S1, S2 heard with normal intensity. No gallops. Head and Neck: The patient noted to have erythema, swelling, and tenderness to the left side of the cheek starting from the bridge of the nose. No active drainage noted at this time. Mild tenderness noted. No lymphadenopathy noted and hard to examine secondary to body habitus. Eyes, pupils equally reactive to light. No conjunctivitis noted at this time. Respiratory: Clear to auscultation bilaterally. No wheeze. No crepitations. Abdomen: Soft. Bowel sounds positive. Nontender. No rigidity. Extremities: No edema bilateral lower extremities. Neurologic: No gross focal neurological deficits. LABORATORY DATA: WBC 17.7, hemoglobin 15.1, hematocrit 43.9, and platelet count 240. Sodium 132, potassium 4.2, chloride 94, bicarb 29, BUN 21, creatinine 1.4, glucose 221, lactic acid 1.6, calcium 9, AST 24, ALT 24. ASSESSMENT: 1. Cellulitis, involving the face. 2. Type 2 diabetes mellitus. 3. Hypertension. 4. Hyperlipidemia. 5. History of gout. PLAN: 1. Cellulitis. The patient noted to have cellulitis involving the left side of the face. The patient had complications with cellulitis involving the groin area in the past resulting in abscess and gangrene requiring incision and debridement. The patient will be admitted to the hospital for broad- spectrum antibiotics. We will have him on vancomycin and ertapenem, and we will closely follow the culture reports and titrate the antibiotics once we have the culture reports available. Titrate the antibiotics for renal function. 2. Hypertension. The patient's blood pressure seems to be in acceptable range. Slightly elevated at this time secondary to pain and discomfort. Continue with pain medications. We will continue with current treatment plan with labetalol. 3. Type 2 diabetes mellitus. The patient noted to be on glipizide and also on Januvia and Lantus. We will continue the same. We will check his fingersticks with each meals, have him on supplemental scale insulin as needed for additional coverage of his blood glucose. The patient noted to have elevated blood sugar now at 221. We will get a hemoglobin A1c. His recent hemoglobin A1c is from April of 2017, which was 8.6. 4. Deep venous thrombosis prophylaxis. We will have him on heparin subcu q.8 hourly for DVT prophylaxis. 5. Chronic kidney disease. Avoid any nephrotoxic agents. Dose adjust medications for renal function. Keep him in euvolemic status. Dose adjust antibiotics for his renal function. 6. Code status. The patient wants to be full code. 7. Discussed with Grant Flores, ER physician regarding the plan of care. Discussed with the patient regarding the plan of care. Reviewed the labs and medications. Reviewed the old charts. [facility] /[id number]
[2017-07-22] MEDS: Heparin Sodium 5,000 Units/ML Vial SUBCUT SCH ×3 (06:16→21:46)
[2017-07-22 07:32] LABS: CHLORIDE,CL 95 mmol/L (101-111); SODIUM,NA 134 mmol/L (135-145)
[2017-07-22] MEDS: Cholecalciferol (Vitamin D3) 400 Unit Tab PO SCH (08:25)
[2017-07-22] MEDS: glipiZIDE 5 MG Tab.ER PO SCH (08:26)
[2017-07-22] MEDS: Labetalol 100 MG Tab PO SCH ×2 (08:26→21:54)
[2017-07-22] MEDS ORDERED: UBIDECARENONE PO SCH (09:00)
[2017-07-22] MEDS ORDERED: Aspirin 81 MG Tab.EC PO SCH (09:00)
[2017-07-22] MEDS ORDERED: atorvaSTATin 20 MG Tab PO SCH (09:00)
[2017-07-22] MEDS: SITAGLIPTIN 100 MG PO SCH (09:57)
[2017-07-22] MEDS: Potassium Chloride 10 MEQ Tab.ER PO SCH ×2 (12:26→17:30)
--- NOTE | 2017-07-22 13:19 | PN ---
DATE: 07/22/2017 HISTORY OF PRESENT ILLNESS: Mr. Raphael Tejeda is a 67-year-old male with medical history significant for hypertension, type 2 diabetes mellitus, hyperlipidemia, chronic kidney disease, admitted with facial cellulitis involving the left side of the face. For the last 24 hours, the patient continues to have mild discomfort to the left side of the face. He denies any chest pain. No shortness of breath. No abdominal pain. No nausea. No vomiting. No diarrhea. He is continued on IV meropenem and vancomycin. REVIEW OF SYSTEMS: Cardiovascular, respiratory, gastrointestinal, neurology, constitutional were all evaluated. PHYSICAL EXAMINATION: Vital Signs: Temperature of 98.9, pulse of 73, blood pressure 146/70, respiratory rate of 20, saturating at 99% on room air. General Appearance: The patient is well oriented to time, place, and person. Follows commands spontaneously. Cardiovascular System: S1 and S2 heard with normal intensity. No gallops. Respiratory System: Clear to auscultation bilaterally. No wheeze. No crepitations. Abdomen: Soft. Bowel sounds positive. Nontender. No rigidity. Extremities: No edema in bilateral lower extremities. Face: The patient continues to have mild erythema and swelling to the left side of the face. No active drainage noted. MEDICATIONS: Reviewed, continue with: 1. Tylenol 650 every 4 hours as needed for pain. 2. Aspirin 81 mg daily. 3. Lipitor 40 mg at bedtime. 4. Glipizide 10 mg daily. 5. Heparin 5000 subcutaneous q.8 hourly. 6. Levemir 50 units at bedtime. 7. Labetalol 100 mg twice a day. 8. Meropenem 1 g IV q.8 hourly. 9. Vancomycin, pharmacy to dose. 10.Potassium chloride 20 mEq twice a day. LABORATORY DATA: Reviewed: WBC 12.2, hemoglobin 14.5, hematocrit 42, platelet count 226. Sodium 134, potassium 3.4, chloride 95, bicarb 29, BUN 19, creatinine 1.2. Glucose 174. ASSESSMENT: 1. Facial cellulitis. 2. Hyponatremia. 3. Hypokalemia. 4. Type 2 diabetes mellitus. 5. Hypertension. PLAN: 1. Facial cellulitis. The patient was admitted with facial cellulitis. He had a CT scan of the face, which showed evidence of soft tissue swelling, but no evidence of abscess. The patient is responding to meropenem and vancomycin. His WBC count has trended down to 12.2. We will continue with current IV antibiotic regimen. Follow the culture reports. 2. Hyponatremia. This is mild in nature. Improved with IV fluids. We will recheck a basic metabolic panel in a.m. 3. Hypokalemia. We will replace with oral potassium chloride. 4. Chronic kidney disease. His creatinine remains stable. Avoid any nephrotoxic agents. Dose adjust medications for renal function, especially with IV vancomycin. [facility] /[id number]
[2017-07-22] MEDS: atorvaSTATin 20 MG Tab PO SCH (21:48)
[2017-07-22] MEDS: UBIDECARENONE PO SCH (21:51)
[2017-07-23] MEDS: Acetaminophen/oxyCODONE 325-5 MG Tab PO PRN (00:15)
[2017-07-23] MEDS: Meropenem 1 GM SDV IVPUSH SCH ×3 (00:40→15:57)
[2017-07-23] MEDS: Heparin Sodium 5,000 Units/ML Vial SUBCUT SCH ×3 (06:25→22:03)
[2017-07-23] MEDS: SITAGLIPTIN 100 MG PO SCH (08:09)
[2017-07-23] MEDS: Potassium Chloride 10 MEQ Tab.ER PO SCH ×2 (08:10→17:41)
[2017-07-23] MEDS: Labetalol 100 MG Tab PO SCH ×2 (08:10→21:49)
[2017-07-23] MEDS: glipiZIDE 5 MG Tab.ER PO SCH (08:10)
[2017-07-23] MEDS: Cholecalciferol (Vitamin D3) 400 Unit Tab PO SCH (08:11)
[2017-07-23] MEDS: Sodium Chloride 0.9% 10 ML Syringe FLUSH PRN ×3 (08:12→15:57)
[2017-07-23 09:58] LABS: CHLORIDE,CL 97 mmol/L (101-111); SODIUM,NA 135 mmol/L (135-145)
--- NOTE | 2017-07-23 12:34 | PN ---
DATE: 07/23/2017 SUBJECTIVE: Mr. Raphael Barclay is a 67-year-old male with medical history significant for hypertension, type 2 diabetes mellitus, hyperlipidemia, chronic kidney disease, admitted with facial cellulitis involving the left side of the face. For the last 24 hours, the patient was continued on IV antibiotics. He is tolerating the antibiotics well. Continues to have some erythema to the left side of the face and noted to have some pustules on the left side of the face. Denies any chest pain. No shortness of breath. No abdominal pain. No nausea. No vomiting. No diarrhea. REVIEW OF SYSTEMS: Cardiovascular, respiratory, gastrointestinal, neurology, constitutional were all evaluated. PHYSICAL EXAMINATION: Vital Signs: Temperature of 98, pulse of 71, blood pressure 156/72, respiratory rate of 20, and saturating at 96% on room air. General Appearance: The patient is well oriented to time, place, and person. Follows commands spontaneously. Cardiovascular System: S1 and S2 heard with normal intensity. No gallops. Respiratory System: Clear to auscultation bilaterally. No wheeze. No crepitations. Abdomen: Soft. Bowel sounds positive. Nontender. No rigidity. Extremities: No edema in bilateral lower extremities. Face: The patient is noted to have erythema involving the left side of the face from the bridge of the nose towards the lateral side of the face. Noted to have some mild folliculitis and pustules noted. No active drainage noted. MEDICATIONS: Reviewed. Continue with: 1. Tylenol 650 every 4 hours as needed. 2. Aspirin 81 mg daily. 3. Lipitor 40 mg at bedtime. 4. Glipizide 10 mg daily. 5. Heparin 5000 subcutaneous q.8 hourly. 6. Levemir 50 units subcutaneous at bedtime. 7. Labetalol 100 mg twice a day. 8. Meropenem IV q.8 hourly 1 g. 9. Vancomycin, Pharmacy to dose. 10.Potassium chloride 20 mEq twice a day. 11.Zofran 4 mg IV q.4 hours as needed. 12.Morphine 2 mg IV q.2 hours as needed for pain. LABORATORY DATA: 1. WBC 12.2, hemoglobin 14.6, hematocrit 42.3, and platelet count 245. 2. Sodium 135, potassium 4, chloride 97, bicarb 30, BUN 17, creatinine 1, and glucose 200. ASSESSMENT: 1. Facial cellulitis, involving the left side of the face. 2. Hyponatremia, improved. 3. Hypokalemia, improved. 4. Type 2 diabetes mellitus. 5. Hypertension. PLAN: 1. Facial cellulitis. The patient is currently on meropenem and vancomycin. His cellulitis seems to be improving at this time. He is developing some pustules with folliculitis on the left side of the face. We will continue with dual antibiotic therapy. He will follow with the culture reports. 2. Hyponatremia, improved with IV fluids. We will discontinue the IV fluids for now. 3. Hypokalemia. Continue with oral potassium chloride. 4. Chronic kidney disease. The patient noted to have [id number] renal failure. His creatinine is back to baseline. Avoid any nephrotoxic agents. Dose adjust medications for renal function. Dose adjust vancomycin for his renal function. 5. We will recheck a basic metabolic panel in the a.m. [facility] /[id number]
[2017-07-23] MEDS ORDERED: atorvaSTATin 10 MG Tab PO SCH (21:40)
[2017-07-23] MEDS: Aspirin 81 MG Tab.EC PO SCH (21:49)
[2017-07-23] MEDS: atorvaSTATin 20 MG Tab PO SCH (21:51)
[2017-07-23] MEDS: UBIDECARENONE PO SCH (21:53)
[2017-07-23] MEDS: Insulin Detemir 100 Units/ML 3 ML Pen SUBCUT SCH (21:54)
[2017-07-24] MEDS: Meropenem 1 GM SDV IVPUSH SCH ×3 (00:06→17:01)
[2017-07-24] MEDS: Sodium Chloride 0.9% 10 ML Syringe FLUSH PRN ×4 (00:06→21:59)
[2017-07-24] MEDS: Acetaminophen/oxyCODONE 325-5 MG Tab PO PRN (01:12)
[2017-07-24] MEDS: Heparin Sodium 5,000 Units/ML Vial SUBCUT SCH ×3 (06:09→21:59)
[2017-07-24] MEDS: glipiZIDE 5 MG Tab.ER PO SCH (09:41)
[2017-07-24] MEDS: Cholecalciferol (Vitamin D3) 400 Unit Tab PO SCH (09:41)
[2017-07-24] MEDS: Potassium Chloride 10 MEQ Tab.ER PO SCH ×2 (09:42→18:00)
[2017-07-24] MEDS: Labetalol 100 MG Tab PO SCH ×2 (09:42→20:43)
[2017-07-24] MEDS: SITAGLIPTIN 100 MG PO SCH (09:46)
--- NOTE | 2017-07-24 13:37 | PN ---
DATE: 07/24/2017 HISTORY OF PRESENT ILLNESS: Mr. Raphael Barclay is a 67-year-old male with medical history significant for hypertension, type 2 diabetes mellitus, hyperlipidemia, chronic kidney disease, admitted with facial cellulitis involving the left side of the face. For the last 24 hours, he is responding well to the treatment. He is continued on IV antibiotics. He denies any chest pain. No shortness of breath. No abdominal pain. No nausea. No vomiting. No diarrhea. REVIEW OF SYSTEMS: Cardiovascular, respiratory, gastrointestinal, neurology, constitutional were all evaluated. PHYSICAL EXAMINATION: Vital Signs: Temperature of 98.6, pulse of 78, blood pressure 147/71, respiratory rate of 18, saturating 96% on room air. General Appearance: The patient is well oriented to time, place, and person. Follows commands spontaneously. Head and Neck: Facial erythema seems to be improving. Tenderness seems to be improved. Folliculitis improved. Cardiovascular System: S1 and S2 heard with normal intensity. No gallops. Respiratory System: Clear to auscultation bilaterally. No wheeze. No crepitations. Abdomen: Soft. Bowel sounds positive. Nontender. No rigidity. Extremities: No edema in bilateral lower extremities. MEDICATIONS: Reviewed. Continue the same. LABORATORY DATA: No new labs ordered for today. We will order for a CBC, and a BMP at this time. His blood sugars are in acceptable range. ASSESSMENT: 1. Facial cellulitis, improving. 2. Type 2 diabetes mellitus. 3. Hypertension. 4. Hyperlipidemia. 5. Chronic kidney disease. 6. Hyponatremia. 7. Hypokalemia. PLAN: 1. Facial cellulitis. The patient is currently on meropenem and vancomycin. His symptoms seems to be improving. Closely follow. Switched to oral antibiotics at the time of discharge. 2. Hypertension. The patient's blood pressure seems to be in acceptable range. Continue with current treatment plan. 3. Type 2 diabetes mellitus. The patient is currently on insulin regimen. Continue the same. Avoid any hypoglycemic episodes. Have him on hypoglycemic protocol. 4. Hypokalemia. The patient is on a potassium chloride supplement. We will recheck a basic metabolic panel today. 5. Possible discharge in a.m., if he remains hemodynamically stable. [facility] /[id number]
[2017-07-24 13:43] LABS: CHLORIDE,CL 100 mmol/L (101-111); SODIUM,NA 136 mmol/L (135-145)
[2017-07-24] MEDS: UBIDECARENONE PO SCH (20:43)
[2017-07-24] MEDS: Aspirin 81 MG Tab.EC PO SCH (20:43)
[2017-07-24] MEDS: Insulin Detemir 100 Units/ML 3 ML Pen SUBCUT SCH (21:56)
[2017-07-25] MEDS: Sodium Chloride 0.9% 10 ML Syringe FLUSH PRN ×2 (00:19→09:35)
[2017-07-25] MEDS: Meropenem 1 GM SDV IVPUSH SCH ×3 (00:19→20:18)
[2017-07-25] MEDS: Heparin Sodium 5,000 Units/ML Vial SUBCUT SCH ×2 (06:01→20:18)
--- NOTE | 2017-07-25 07:37 | PCM.PRNOTE ---
- Free Text/Narrative Note: Requested to insert IV for medication administration. Multiple IV attempts by floor nurses unsuccessful. Explained procedure to patient and patient consented to IV placement. Upon assessment, left hand was identified as potential IV location. Tourniquet was applied to forearm. Area was cleaned with alcohol. Using a 22 gauge angiocath, IV was successfully started to left hand. Great blood return and flushes perfectly. IV was dressed with tegaderm and tape. RN was notified. Pt is happy with single attempt.
[2017-07-25] MEDS: Potassium Chloride 10 MEQ Tab.ER PO SCH ×2 (09:24→20:18)
[2017-07-25] MEDS: SITAGLIPTIN 100 MG PO SCH (09:24)
[2017-07-25] MEDS: Labetalol 100 MG Tab PO SCH (09:25)
[2017-07-25] MEDS: glipiZIDE 5 MG Tab.ER PO SCH (09:25)
[2017-07-25] MEDS: Cholecalciferol (Vitamin D3) 400 Unit Tab PO SCH (09:26)
[2017-07-25 10:08] LABS: CHLORIDE,CL 102 mmol/L (101-111); SODIUM,NA 137 mmol/L (135-145)
[2017-07-25 11:48] VITALS: BP 141/98
--- NOTE | 2017-07-26 02:51 | DISCH ---
ADMITTING DIAGNOSES: 1. Cellulitis involving the left side of the face. 2. Xetja-[id number]-[id number] renal failure. DISCHARGE DIAGNOSES: 1. Cellulitis involving the left side of the face, resolved. 2. Type 2 diabetes mellitus. 3. Hypertension. 4. [id number] renal failure. HISTORY OF PRESENTING ILLNESS: Mr. Raphael Barclay is a 67-year-old male with medical history significant for hypertension, type 2 diabetes mellitus, hyperlipidemia, history of gout, chronic kidney disease, and spinal cord tumor in the past, presented to the hospital with complaints of pain and swelling to the left side of the face in order to have cellulitis involving the left side of the face. The patient had a CT scan of the head, which did not show any evidence of deep-seated abscess except for soft tissue swelling. The patient was admitted and was started on IV antibiotic with meropenem and vancomycin. The patient has completed 5 days of IV antibiotics with meropenem and vancomycin. His cellulitis has resolved at this time. We are switching him to oral antibiotic with Augmentin and doxycycline for the next 1 week of time. He responded well to the treatment. He was treated with IV fluids on this admission. He is discharged home in stable condition. He is advised to follow with his primary care physician in the next 1 week of time. DISCHARGE MEDICATIONS: Include: 1. Percocet 5/324 mg every 4 hours as needed for pain for 7 tablets. 2. Augmentin 1 tablet twice a day, 875/125 mg tablet for 1 week. 3. Aspirin 81 mg daily. 4. Vitamin D3, 1000 units daily. 5. Doxycycline 100 mg oral daily for the next 1 week. 6. Lantus insulin 50 units subcu every evening. 7. Labetalol 100 mg twice a day. 8. Januvia 50 mg daily. 9. Coenzyme Q10 one tablet daily. 10.Lipitor 40 mg daily. 11.Glipizide XL 10 mg daily. PHYSICAL EXAMINATION: Vital Signs: On the day of discharge, vitals; temperature of 97.9, pulse of 89, blood pressure 135/91, saturating at 99% on room air. General: The patient is well oriented to time, place, and person. Follows commands spontaneously. Cardiovascular System: S1, S2 heard with normal intensity. No gallops. Respiratory System: Clear to auscultation bilaterally. No wheeze. No crepitations. Abdomen: Soft. Bowel sounds positive. Nontender. No rigidity. Extremities: No edema in bilateral lower extremities. Neurology: No gross focal neurological deficit. CONDITION ON ADMISSION: Poor. CONDITION ON DISCHARGE: Stable. ACTIVITY: As tolerated. DIET: Cardiac healthy diet with consistent carbohydrate diet. FOLLOWUP: Follow up with primary care physician in the next 1 week of time. I spent over 35 minutes of time in evaluating and treating this patient and discharge planning. [facility] /[id number]
== END 2017-07-25 14:35 | disposition home or self-care (01) | DRG 603 ==
LOC: DL.ED 19:59 → UNDOADMIN 21:47 → DL.MS 21:47
PROVIDERS: ADMIT Internal Medicine; ATTEND Internal Medicine
DX: L03.211 Cellulitis of face (principal); E87.1 Hypo-osmolality and hyponatremia; N17.9 Acute kidney failure, unspecified; E87.6 Hypokalemia; E78.5 Hyperlipidemia, unspecified; N52.9 Male erectile dysfunction, unspecified; I12.9 Hypertensive chronic kidney disease with stage 1 through stage 4 chronic kidney disease, or unspecified chronic kidney disease; E11.22 Type 2 diabetes mellitus with diabetic chronic kidney disease; N18.9 Chronic kidney disease, unspecified; M10.9 Gout, unspecified; Z96.649 Presence of unspecified artificial hip joint; Z87.891 Personal history of nicotine dependence; Z88.8 Allergy status to other drugs, medicaments and biological substances; Z79.84 Long term (current) use of oral hypoglycemic drugs; Z79.82 Long term (current) use of aspirin; Z79.4 Long term (current) use of insulin; Z79.899 Other long term (current) drug therapy
CPT/HCPCS: 36410; 36415; 70486; 80048; 80053; 80202; 82962; 83605; 85025; 85027; 87040; 87804; 99284; A9270-GY; J1644; J1815-GY; J2185; J3370; J7030; J7040; J7050

== ENCOUNTER 2018-10-21 03:37 | Emergency (ER) | payer MEDICARE, BC ==
[2018-10-21] MEDS ORDERED: 50% Dextrose in Water 50 ML Syringe ONE (03:45)
[2018-10-21] MEDS ORDERED: Sodium Chloride 0.9% 1,000 ML IV SCH (03:52)
--- NOTE | 2018-10-21 03:57 | EDM.PDOC ---
ED HPI GENERAL MEDICAL PROBLEM - General Chief Complaint: General Stated Complaint: SICK [id number] Time Seen by Provider: 10/21/18 03:45 Source of Information: Reports: Family History Limitations: Reports: No Limitations - History of Present Illness INITIAL COMMENTS - FREE TEXT/NARRATIVE: This 68 yo male patient was brought to the ED by his due to the patient not feeling well. Upon arrival in the ED, the patient's skin was cool and clammy. The patient's initial blood sugar was 24. The patient was given an amp of D50. After the D50, the patient started responding normally. The patient's initial EKG demonstrated A Fib with a ventricular rate of 50. While assessing the patient, his heart rate dropped to 38 and remained at that rate. The patient was given 0.5 mg of Atropine which increased his heartrate to the 60's. The patient's reported that the patient was not feeling too well yesterday with increased swelling of his lower extremities. The patient has a history of cellulitis, but no history of A. Fib. Onset: Today Duration: Constant Location: Reports: Generalized Quality: Reports: Other Severity: Severe Improves with: Reports: None Worsens with: Reports: None Context: Reports: Other - Related Data Allergies Allergy/AdvReac Type Severity Reaction Status Date / Time furosemide Allergy Cannot Verified 10/21/18 03:41 Remember nifedipine Allergy Muscle Verified 10/21/18 03:41 Weakness rosuvastatin [From Crestor] Allergy Cannot Verified 10/21/18 03:41 Remember CALCIUM CONTAINING COMPOUNDS Allergy Cannot Uncoded 10/21/18 03:41 Remember Home Meds: Home Meds Aspirin [Ecotrin] 81 mg PO DAILY 05/30/16 [History] Ubidecarenone [Coenzyme Q-10] 1 cap PO DAILY 05/30/16 [History] atorvaSTATin [Lipitor] 40 mg PO DAILY 05/30/16 [History] Cholecalciferol (Vitamin D3) [Vitamin D3] 1,000 unit PO DAILY 03/01/17 [History] Insulin Glargine,Hum.Rec.Anlog [Lantus Solostar] 50 units SQ QPM 03/01/17 [ History] SitaGLIPtin [Januvia] 50 mg PO DAILY 03/01/17 [History] glipiZIDE [Glipizide Xl] 10 mg PO DAILY 03/01/17 [History] Labetalol [Normodyne] 100 mg PO BID 03/23/17 [History] Acetaminophen/oxyCODONE [Percocet 325-5 MG] 1 tab PO Q4H PRN #7 tablet 07/25/17 [Rx] Amoxicillin/Potassium Clav [Augmentin 875-125 Tablet] 1 each PO BID #14 tablet 07/25/17 [Rx] Doxycycline [Doxycycline Monohydrate] 100 mg PO DAILY #7 tab 07/25/17 [Rx] Past Medical History HEENT History: Reports: Other (See Below) Other HEENT History: wears reading glasses Cardiovascular History: Reports: High Cholesterol, Hypertension Musculoskeletal History: Reports: Back Pain, Chronic Endocrine/Metabolic History: Reports: Diabetes, Type II, Obesity/BMI 30+ Dermatologic History: Reports: Cellulitis, Other (See Below) Other Dermatologic History: ingrown hair-proceeded to gangrene-debridement- wound vac to be placed. - Infectious Disease History Infectious Disease History: Reports: Chicken Pox - Past Surgical History HEENT Surgical History: Reports: None Musculoskeletal Surgical History: Reports: Hip Replacement, Other (See Below) Other Musculoskeletal Surgeries/Procedures:: Back Surgery Social & Family History - Family History Family Medical History: Noncontributory - Caffeine Use Caffeine Use: Reports: Coffee ED ROS GENERAL - Review of Systems Review Of Systems: ROS reveals no pertinent complaints other than HPI. ED EXAM, GENERAL - Physical Exam Exam: See Below Exam Limited By: Altered Mental Status (initially (blood sugar of 24 upon arrival)) General Appearance: Moderate Distress, Obese Eye Exam: Bilateral Eye: EOMI, Normal Inspection, PERRL Ears: Normal External Exam, Normal Canal, Hearing Grossly Normal, Normal TMs Nose: Normal Inspection, Normal Mucosa, No Blood Throat/Mouth: Normal Inspection, Normal Lips, Normal Teeth, Normal Gums, Normal Oropharynx, Normal Voice, No Airway Compromise Head: Atraumatic, Normocephalic Neck: Normal Inspection, Supple, Non-Tender, Full Range of Motion Respiratory/Chest: No Respiratory Distress, Lungs Clear, Normal Breath Sounds, No Accessory Muscle Use, Chest Non-Tender Cardiovascular: Bradycardia, Irregularly Irregular GI/Abdominal: Normal Bowel Sounds, Soft, Non-Tender, No Organomegaly, No Distention, No Abnormal Bruit, No Mass, Other (obese) (Male) Exam: Deferred Rectal (Males) Exam: Deferred Back Exam: Normal Inspection, Full Range of Motion, NT Extremities: Pedal Edema Neurological: Alert, Oriented, CN II-XII Intact, Normal Cognition, Normal Gait, Normal Reflexes, No Motor/Sensory Deficits Psychiatric: Normal Affect, Normal Mood Skin Exam: Warm, Dry, Intact, Normal Color, No Rash Lymphatic: No Adenopathy Course - Vital Signs Last Recorded V/S: Last Vital Signs Temp 36.1 C 10/21/18 04:25 Pulse 68 10/21/18 04:25 Resp 15 10/21/18 04:25 BP 157/98 H 10/21/18 04:25 Pulse Ox 97 10/21/18 04:25 - Orders/Labs/Meds Orders: Active Orders 24 hr Category Date Time Status EKG Documentation Completion [RC] URGENT Care 10/21/18 03:51 Active POC Glucose [Blood Glucose Check, Bedside] [RC] ONETIME Care 10/21/18 03:43 Active POC Glucose [Blood Glucose Check, Bedside] [RC] ONETIME Care 10/21/18 03:48 Active POC Labs [RC] ASDIRECTED Care 10/21/18 03:43 Inactive MAGNESIUM [CHEM] Stat Lab 10/21/18 04:50 Ordered UA RFX PATRICK AND CULT IF INDIC [URIN] Urgent Lab 10/21/18 03:51 Ordered Potassium Chloride [KCl 10 MEQ in Water 100 ML] 10 meq Med 10/21/18 04:49 Ordered Premix Bag 1 bag IV ONETIME Sodium Chloride 0.9% [Normal Saline] 1,000 ml Med 10/21/18 03:52 Active IV ASDIRECTED Medication Orders Sodium Chloride (Normal Saline) 1,000 mls @ 75 mls/hr IV ASDIRECTED MOI Last Admin: 10/21/18 04:36 Dose: 75 mls/hr Potassium Chloride 10 meq/ (Premix) 100 mls @ 100 mls/hr IV ONETIME ONE Stop: 10/21/18 05:48 Labs: Laboratory Tests 10/21/18 10/21/18 10/21/18 Range/Units 03:52 03:52 03:58 WBC 10.2 H (5.0-10.0) 10^3/uL RBC 4.25 L (4.6-6.2) 10^6/uL Hgb 12.3 L D (14.0-18.0) g/dL Hct 36.9 L (40.0-54.0) % MCV 86.8 D (80-100) fL MCH 28.9 (27.0-34.0) pg MCHC 33.3 (33.0-35.0) g/dL Plt Count 213 D (150-450) 10^3/uL Neut % (Auto) 61.9 (42.2-75.2) % Lymph % (Auto) 25.7 (20.5-50.1) % Roberts % (Auto) 9.3 H (2-8) % Eos % (Auto) 2.8 (1.0-3.0) % Baso % (Auto) 0.3 (0.0-1.0) % Sodium 133 L (135-145) mmol/L Potassium 3.1 L (3.6-5.0) mmol/L Chloride 105 (101-111) mmol/L Carbon Dioxide 22.0 (21.0-31.0) mmol/L Anion Gap 9.1 BUN 37 H (7-18) mg/dL Creatinine 2.3 H D (0.6-1.3) mg/dL Est Cr Clr Drug Dosing 32.62 mL/min Estimated GFR (MDRD) 29 BUN/Creatinine Ratio 16.08 Glucose 221 H (74-105) mg/dL POC Glucose 129 H (70-105) mg/dl Calcium 7.7 L D (8.4-10.2) mg/dl Total Bilirubin 0.6 (0.2-1.0) mg/dL AST 34 (10-42) IU/L ALT 34 (10-60) IU/L Alkaline Phosphatase 87 (42-121) IU/L Troponin I 0.05 H* (0.00-0.02) ng/ml B-Natriuretic Peptide 403 H (0-100) pg/ml Total Protein 5.7 L (6.7-8.2) g/dl Albumin 2.4 L (3.2-5.5) g/dl Globulin 3.3 Albumin/Globulin Ratio 0.73 Meds: Medications Generic Name Dose Route Start Last Admin Trade Name Freq PRN Reason Stop Dose Admin Sodium Chloride 1,000 mls @ 75 mls/hr 10/21/18 03:52 10/21/18 04:36 Normal Saline IV 75 mls/hr ASDIRECTED MOI Administration Potassium Chloride 10 meq/ 100 mls @ 100 mls/hr 10/21/18 04:49 Premix IV 10/21/18 05:48 ONETIME ONE Discontinued Medications Generic Name Dose Route Start Last Admin Trade Name Shaye PRN Reason Stop Dose Admin Aspirin 324 mg 10/21/18 04:49 Aspirin PO 10/21/18 04:50 ONETIME ONE Atropine Sulfate 0.5 mg 10/21/18 03:59 10/21/18 04:04 Atropine 0.1 Mg/Ml IVPUSH 10/21/18 04:00 0.5 mg ONETIME ONE Administration Atropine Sulfate Confirm 10/21/18 04:03 10/21/18 04:07 Atropine 0.1 Mg/Ml Administered 10/21/18 04:04 Not Given Dose 1 mg .ROUTE .STK-MED ONE Dextrose/Water Confirm 10/21/18 03:45 10/21/18 03:47 Dextrose 50% In Water Administered 10/21/18 03:46 50 ml Dose Administration 50 ml .ROUTE .STK-MED ONE Departure - Departure Time of Disposition: 04:55 Disposition: DC/Tfer to [facility] 02 Condition: Fair Clinical Impression: Hypoglycemia, Bradycardia, Elevated troponin I level Acute renal failure Qualifiers: Acute renal failure type: unspecified Qualified Code(s): N17.9 - Acute kidney failure, unspecified - Discharge Information *PRESCRIPTION DRUG MONITORING PROGRAM REVIEWED*: Not Applicable *COPY OF PRESCRIPTION DRUG MONITORING REPORT IN PATIENT WILLIAM: Not Applicable Forms: ED Department Discharge Care Plan Goals: Discussed the patient's history, examination, lab, EKG and treatments with Dr. Dahl ([facility] ED Provider). Dr. Dahl accepted the patient. Prior to transport, the patient was given D50, Atropine (0.5 mg), Aspirin and IV Potassium. The patient will be transported by [facility]. - My Orders Last 24 Hours: My Active Orders 10/21/18 03:43 POC Glucose [Blood Glucose Check, Bedside] [RC] ONETIME POC Labs [RC] ASDIRECTED 10/21/18 03:48 POC Glucose [Blood Glucose Check, Bedside] [RC] ONETIME 10/21/18 03:51 EKG Documentation Completion [RC] URGENT UA RFX PATRICK AND CULT IF INDIC [URIN] Urgent 10/21/18 03:52 Sodium Chloride 0.9% [Normal Saline] 1,000 ml IV ASDIRECTED 10/21/18 04:49 Potassium Chloride [KCl 10 MEQ in Water 100 ML] 10 meq Premix Bag 1 bag IV ONETIME 10/21/18 04:50 MAGNESIUM [CHEM] Stat - Assessment/Plan Last 24 Hours: My Active Orders 10/21/18 03:43 POC Glucose [Blood Glucose Check, Bedside] [RC] ONETIME POC Labs [RC] ASDIRECTED 10/21/18 03:48 POC Glucose [Blood Glucose Check, Bedside] [RC] ONETIME 10/21/18 03:51 EKG Documentation Completion [RC] URGENT UA RFX PATRICK AND CULT IF INDIC [URIN] Urgent 10/21/18 03:52 Sodium Chloride 0.9% [Normal Saline] 1,000 ml IV ASDIRECTED 10/21/18 04:49 Potassium Chloride [KCl 10 MEQ in Water 100 ML] 10 meq Premix Bag 1 bag IV ONETIME 10/21/18 04:50 MAGNESIUM [CHEM] Stat
[2018-10-21] MEDS ORDERED: Atropine 0.1 MG/ML 10 ML Syringe IVPUSH ONE (03:59)
[2018-10-21] MEDS ORDERED: Atropine 0.1 MG/ML 10 ML Syringe ONE (04:03)
[2018-10-21 04:21] LABS: ANION GAP 9.1
[2018-10-21 04:28] VITALS: BP 157/98
[2018-10-21] MEDS ORDERED: Aspirin 81 MG Tab.Chew PO ONE (04:49)
[2018-10-21] MEDS ORDERED: Potassium Chloride 10 MEQ in Premix Bag 1 BAG IV ONE (04:49)
[2018-10-21] MEDS ORDERED: 50% Dextrose in Water 50 ML Syringe IVPUSH ONE (05:24)
== END 2018-10-21 05:43 ==
LOC: DL.ED 03:37
DX: N17.9 Acute kidney failure, unspecified (principal); R00.1 Bradycardia, unspecified; E11.641 Type 2 diabetes mellitus with hypoglycemia with coma; R79.89 Other specified abnormal findings of blood chemistry; I10 Essential (primary) hypertension; E78.00 Pure hypercholesterolemia, unspecified; Z79.82 Long term (current) use of aspirin; Z79.899 Other long term (current) drug therapy; Z88.8 Allergy status to other drugs, medicaments and biological substances; Z79.4 Long term (current) use of insulin
CPT/HCPCS: 36415; 80053; 82962; 83735; 83880; 84484; 85025; 93005; 96365; 96368; 96375; 99285; A9270; J0461; J3480; J7030; J7060

== ENCOUNTER 2021-07-24 05:57 | Inpatient (IN) | payer MEDICARE, BC ==
[2021-07-24] MEDS ORDERED: Orphenadrine 60 MG/2 ML Inj IM ONE (06:37)
[2021-07-24 07:39] LABS: ANION GAP 15.1 mEq/L (7-13)
[2021-07-24] MEDS ORDERED: fentaNYL 100 MCG/2 ML SDV IVPUSH ONE (08:05)
[2021-07-24] MEDS ORDERED: Ondansetron 4 MG/2 ML SDV IV ONE (08:06)
[2021-07-24] MEDS ORDERED: Dexamethasone 4 MG/ML SDV IVPUSH ONE (08:06)
[2021-07-24] MEDS ORDERED: Sodium Chloride 0.9% 500 ML IV SCH (08:15)
[2021-07-24] MEDS: Sodium Chloride 0.9% 10 ML Syringe FLUSH PRN ×3 (08:24→15:28)
[2021-07-24 09:45] LABS: CORONAVIRUS COVID-19 NAA NEGATIVE (NEGATIVE); RESPIRATORY SYNCYTIAL VIR NAA NEGATIVE (NEGATIVE)
[2021-07-24] MEDS ORDERED: Ondansetron 4 MG/2 ML SDV IVPUSH PRN (11:48)
[2021-07-24] MEDS ORDERED: Temazepam 15 MG Cap PO PRN (11:48)
[2021-07-24] MEDS ORDERED: 50% Dextrose in Water 50 ML Syringe IVPUSH PRN (11:55)
[2021-07-24] MEDS: cefTRIAXone 1 GM in Sodium Chloride 0.9% 50 ML IV SCH (12:34)
[2021-07-24] MEDS: oxyCODONE 5 MG Tab PO PRN ×2 (14:04→20:18)
[2021-07-24] MEDS: Heparin Sodium 5,000 Units/ML Vial SUBCUT SCH ×2 (14:06→22:18)
[2021-07-24] MEDS ORDERED: BUMETANIDE 2 MG PO SCH (15:00)
[2021-07-24] MEDS: Morphine 2 MG/ML SYRINGE IVPUSH PRN ×2 (15:27→22:14)
[2021-07-24] MEDS: LEVOTHYROXINE 88 MCG PO SCH (15:32)
[2021-07-24] MEDS: HYDRALAZINE 100 MG PO SCH ×2 (15:33→22:16)
[2021-07-24] MEDS: CHOLECALCIFEROL 5000 UNIT PO SCH (15:34)
[2021-07-24] MEDS: Aspirin 81 MG Tab.EC **PT OWN MED PO SCH (15:36)
[2021-07-24] MEDS: INSULIN LISPRO 100 UNIT/ML SUBCUT SCH ×2 (15:38→17:46)
[2021-07-24] MEDS: Lidocaine 5% 700 MG Patch TOP SCH (15:42)
[2021-07-24] MEDS: Acetaminophen 325 MG Tab PO PRN ×2 (15:43→20:34)
[2021-07-24] MEDS: Baclofen 10 MG Tab PO PRN (15:44)
[2021-07-24] MEDS: Gabapentin 100 MG Cap PO SCH ×2 (15:53→20:18)
[2021-07-24] MEDS: Insulin Lispro 100 Units/ML 3 ML Vial SUBCUT SCH ×3 (16:08→22:24)
[2021-07-24] MEDS: BUMETANIDE 2 MG PO SCH (16:11)
[2021-07-24] MEDS: SUCROFERRIC OXYHYDROXIDE 500 MG PO SCH (16:53)
[2021-07-24] MEDS: METOLAZONE 5 MG PO SCH (16:53)
[2021-07-24] MEDS: RENA VITE PO SCH (16:56)
[2021-07-24] MEDS ORDERED: glipiZIDE 5 MG Tab.ER PO SCH (21:00)
[2021-07-24] MEDS ORDERED: Labetalol 100 MG Tab PO SCH (21:00)
[2021-07-24] MEDS ORDERED: INSULIN GLARG HUMAN REC ANALOG 100 UNIT/ML SUBCUT SCH (21:00)
[2021-07-24] MEDS: Remove Patch **LIDOCAINE PATCH TRDERM SCH (22:00)
[2021-07-24] MEDS: ATORVASTATIN CALCIUM 80 MG PO SCH (22:16)
[2021-07-24] MEDS: ISOSORBIDE MONONITRATE 120 MG PO SCH (22:16)
[2021-07-24] MEDS: LOSARTAN POTASSIUM 100 MG PO SCH (22:17)
[2021-07-25] MEDS: oxyCODONE 5 MG Tab PO PRN ×2 (06:25→10:56)
[2021-07-25] MEDS: LEVOTHYROXINE 88 MCG PO SCH (06:28)
[2021-07-25] MEDS: HYDRALAZINE 100 MG PO SCH ×3 (06:29→21:13)
[2021-07-25] MEDS: Heparin Sodium 5,000 Units/ML Vial SUBCUT SCH (06:31)
[2021-07-25] MEDS: Baclofen 10 MG Tab PO PRN (07:45)
[2021-07-25] MEDS: Morphine 2 MG/ML SYRINGE IVPUSH PRN ×2 (07:46→10:12)
[2021-07-25] MEDS: SUCROFERRIC OXYHYDROXIDE 500 MG PO SCH ×3 (08:19→17:49)
[2021-07-25] MEDS: INSULIN LISPRO 100 UNIT/ML SUBCUT SCH ×2 (08:21→12:09)
[2021-07-25] MEDS: Insulin Lispro 100 Units/ML 3 ML Vial SUBCUT SCH ×2 (08:24→12:03)
[2021-07-25] MEDS: Lidocaine 5% 700 MG Patch TOP SCH (08:25)
[2021-07-25] MEDS: Aspirin 81 MG Tab.EC **PT OWN MED PO SCH (08:26)
[2021-07-25] MEDS: RENA VITE PO SCH (08:27)
[2021-07-25] MEDS: CHOLECALCIFEROL 5000 UNIT PO SCH (08:27)
[2021-07-25] MEDS: Gabapentin 100 MG Cap PO SCH ×3 (08:28→21:15)
[2021-07-25] MEDS: ISOSORBIDE MONONITRATE 120 MG PO SCH ×2 (08:29→21:13)
[2021-07-25] MEDS: LOSARTAN POTASSIUM 100 MG PO SCH ×2 (08:30→21:14)
[2021-07-25] MEDS ORDERED: BIOTIN PO SCH (09:00)
[2021-07-25] MEDS ORDERED: METOLAZONE 5 MG PO SCH (09:00)
[2021-07-25] MEDS ORDERED: VIT B CMPLX PO SCH (09:00)
[2021-07-25] MEDS ORDERED: Non-Formulary Medication 1 Each (Isosorbide Mononitrate [Isosorbide Mononitrate Er] 120 MG PO SCH (09:00)
[2021-07-25] MEDS ORDERED: Non-Formulary Medication 1 Each (Hydralazine [Apresoline] 100 MG Tablet) PO SCH (09:00)
[2021-07-25] MEDS ORDERED: Non-Formulary Medication 1 Each (Cholecalciferol (Vitamin D3) [Vitamin D3] 1,000 UNIT Caps PO SCH (09:00)
[2021-07-25] MEDS ORDERED: [UNRECOGNIZED DRUG - OTHER] PO SCH (09:00)
[2021-07-25] MEDS ORDERED: Non-Formulary Medication 1 Each (Sitagliptin [Januvia] 50 MG Tablet) PO SCH (09:00)
[2021-07-25 09:58] LABS: ANION GAP 14.7 mEq/L (7-13)
[2021-07-25] MEDS: Acetaminophen 325 MG Tab PO PRN (10:57)
[2021-07-25] MEDS: cefTRIAXone 1 GM in Sodium Chloride 0.9% 50 ML IV SCH (10:59)
[2021-07-25] MEDS ORDERED: Morphine 2 MG/ML SYRINGE IVPUSH PRN (15:24)
[2021-07-25] MEDS ORDERED: 50% Dextrose in Water 50 ML Syringe IVPUSH PRN (15:33)
[2021-07-25] MEDS ORDERED: Glucagon,Human Recombinant 1 MG Vial IM PRN (15:33)
[2021-07-25] MEDS: METOLAZONE 5 MG PO SCH (15:42)
[2021-07-25] MEDS: BUMETANIDE 2 MG PO SCH (15:43)
[2021-07-25] MEDS ORDERED: Insulin Glarg,Human.Rec.Analog 100 Unit/ML SUBCUT SCH (21:00)
[2021-07-25] MEDS: Sodium Chloride 0.9% 10 ML Syringe FLUSH PRN (21:15)
[2021-07-25] MEDS: ATORVASTATIN CALCIUM 80 MG PO SCH (21:15)
[2021-07-25] MEDS: Remove Patch **LIDOCAINE PATCH TRDERM SCH (21:24)
[2021-07-25] MEDS ORDERED: INSULIN GLARGINE 100 UNIT/ML SUBCUT SCH (21:45)
[2021-07-25] MEDS ORDERED: INSULIN LISPRO 100 UNIT/ML SUBCUT SCH (21:45)
[2021-07-26] MEDS: LEVOTHYROXINE 88 MCG PO SCH (05:32)
[2021-07-26] MEDS: HYDRALAZINE 100 MG PO SCH (05:33)
[2021-07-26] MEDS: Baclofen 10 MG Tab PO PRN ×2 (06:27→13:03)
[2021-07-26] MEDS: oxyCODONE 5 MG Tab PO PRN ×2 (07:42→13:03)
[2021-07-26] MEDS: SUCROFERRIC OXYHYDROXIDE 500 MG PO SCH (08:00)
[2021-07-26 08:37] LABS: ANION GAP 20.5 mEq/L (7-13)
[2021-07-26] MEDS: Lidocaine 5% 700 MG Patch TOP SCH (08:47)
[2021-07-26] MEDS: ISOSORBIDE MONONITRATE 120 MG PO SCH (08:49)
[2021-07-26] MEDS: LOSARTAN POTASSIUM 100 MG PO SCH (08:50)
[2021-07-26] MEDS: Aspirin 81 MG Tab.EC **PT OWN MED PO SCH (08:51)
[2021-07-26] MEDS: CHOLECALCIFEROL 5000 UNIT PO SCH (08:52)
[2021-07-26] MEDS: RENA VITE PO SCH (08:52)
[2021-07-26 12:50] VITALS: BP 150/60; PULSE 68
[2021-07-26] MEDS: cefTRIAXone 1 GM in Sodium Chloride 0.9% 50 ML IV SCH (12:51)
== END 2021-07-26 13:15 | DRG 551 ==
LOC: DL.ED 05:57 → DL.MS 10:58 → OBSVTOIN 07-25 09:07
PROVIDERS: ADMIT Internal Medicine; ATTEND Internal Medicine
PROC: 3E0333Z Introduction of Anti-inflammatory into Peripheral Vein, Percutaneous Approach (ICD-10-PCS; principal; 2021-07-24)
DX: M54.50 Low back pain, unspecified (principal); N18.6 End stage renal disease; Z68.41 Body mass index [BMI] 40.0-44.9, adult; I12.0 Hypertensive chronic kidney disease with stage 5 chronic kidney disease or end stage renal disease; M51.36 Other intervertebral disc degeneration, lumbar region; M48.061 Spinal stenosis, lumbar region without neurogenic claudication; E11.22 Type 2 diabetes mellitus with diabetic chronic kidney disease; Z99.2 Dependence on renal dialysis; D72.829 Elevated white blood cell count, unspecified; E66.01 Morbid (severe) obesity due to excess calories; H54.7 Unspecified visual loss; E78.00 Pure hypercholesterolemia, unspecified; Z96.649 Presence of unspecified artificial hip joint; G89.29 Other chronic pain; M54.9 Dorsalgia, unspecified; D64.9 Anemia, unspecified; Z20.822 Contact with and (suspected) exposure to COVID-19; Z79.82 Long term (current) use of aspirin; Z79.890 Hormone replacement therapy; Z79.4 Long term (current) use of insulin; Z79.899 Other long term (current) drug therapy; Z88.8 Allergy status to other drugs, medicaments and biological substances; E11.649 Type 2 diabetes mellitus with hypoglycemia without coma
CPT/HCPCS: 0241U; 36415; 71045; 72131; 80048; 81001; 82728; 82947; 83540; 83550; 83605; 83615; 85018; 85025; 85027; 86140; 86850; 86900; 86901; 87040; 87070; 87075; 87205; 94762; 96372; 96374; 96375; 99285; 96365; 96376; A9270-GY; G0378; J0696; J1100; J1644; J2270; J2360; J2405; J3010; J7040

== ENCOUNTER 2021-09-08 17:31 | Observation (INO) | payer MEDICARE, BC ==
[2021-09-08] MEDS ORDERED: Cyclobenzaprine 10 MG Tab ONE (19:01)
[2021-09-08] MEDS ORDERED: Acetaminophen/oxyCODONE 325-5 MG Tab PO PRN (19:58)
[2021-09-08] MEDS ORDERED: HYDROmorphone 0.5 MG/0.5 ML Syringe IVPUSH PRN (19:58)
[2021-09-08] MEDS ORDERED: Ondansetron 4 MG/2 ML SDV IVPUSH PRN (19:58)
[2021-09-08] MEDS ORDERED: Albuterol/Ipratropium 3.0-0.5 MG/3 ML Neb Soln NEB PRN (19:58)
[2021-09-08] MEDS ORDERED: Sodium Chloride 0.9% 10 ML Syringe FLUSH PRN (19:58)
[2021-09-08] MEDS ORDERED: Polyethylene Glycol 3350 Powder 17 GM Packet PO PRN (19:58)
[2021-09-08] MEDS ORDERED: Docusate Sodium 100 MG Cap PO PRN (22:05)
[2021-09-08] MEDS ORDERED: Glucagon,Human Recombinant 1 MG Vial IM PRN (22:07)
[2021-09-08] MEDS ORDERED: 50% Dextrose in Water 50 ML Syringe IVPUSH PRN (22:07)
[2021-09-08] MEDS ORDERED: Midodrine 2.5 MG Tab PO SCH (22:30)
[2021-09-08] MEDS ORDERED: methylPREDNISolone 4 MG Tab 21 Tab/Dosepak PO ONE (22:30)
[2021-09-08] MEDS: oxyCODONE 5 MG Tab PO PRN (22:39)
[2021-09-08] MEDS: Insulin Glarg,Human.Rec.Analog 100 Unit/ML SUBCUT SCH (23:05)
[2021-09-09] MEDS: Acetaminophen 500 MG Tab PO PRN ×4 (00:05→20:12)
[2021-09-09] MEDS: oxyCODONE 5 MG Tab PO PRN ×5 (03:56→21:08)
[2021-09-09] MEDS: Sodium Chloride 0.9% 10 ML Syringe FLUSH SCH ×3 (06:21→21:08)
[2021-09-09] MEDS: Levothyroxine 88 MCG Tab PO SCH (06:23)
[2021-09-09] MEDS: Insulin Lispro 100 Units/ML 3 ML Vial SUBCUT SCH ×3 (07:56→16:54)
[2021-09-09] MEDS: Losartan 50 MG Tab PO SCH (08:45)
[2021-09-09] MEDS: Metolazone 2.5 MG Tab PO SCH (08:46)
[2021-09-09] MEDS: Isosorbide Mononitrate 60 MG Tab.ER PO SCH ×2 (08:46→20:12)
[2021-09-09] MEDS: Vitamin B Complex Cap PO SCH (08:47)
[2021-09-09] MEDS: Bumetanide 1 MG Tab PO SCH (08:48)
[2021-09-09] MEDS: methylPREDNISolone 4 MG Tab 21 Tab/Dosepak PO SCH ×3 (08:50→20:16)
[2021-09-09] MEDS: Lidocaine 5% 700 MG Patch TOP SCH (08:53)
[2021-09-09] MEDS ORDERED: Non-Formulary Medication 1 Each (Cinacalcet [Sensipar] 30 MG Tablet) PO SCH (09:00)
[2021-09-09] MEDS ORDERED: Aspirin 81 MG Tab.EC PO SCH (09:00)
[2021-09-09 10:25] LABS: ANION GAP 20.3 mEq/L (7-13)
[2021-09-09] MEDS ORDERED: hydrALAZINE 20 MG/ML SDV IVPUSH PRN (12:00)
[2021-09-09] MEDS ORDERED: Cyclobenzaprine 10 MG Tab PO PRN (18:35)
[2021-09-09] MEDS ORDERED: Nystatin Topical Powder 30 GM Bottle TOP PRN (20:00)
[2021-09-09] MEDS: Insulin Glarg,Human.Rec.Analog 100 Unit/ML SUBCUT SCH (20:18)
[2021-09-10] MEDS: Acetaminophen 500 MG Tab PO PRN ×2 (01:30→05:47)
[2021-09-10] MEDS: oxyCODONE 5 MG Tab PO PRN ×2 (01:30→05:48)
[2021-09-10] MEDS ORDERED: Pantoprazole 40 MG Vial IVPUSH ONE (03:48)
[2021-09-10] MEDS ORDERED: Calcium Carbonate 500 MG Tab.Chew PO PRN (03:49)
[2021-09-10] MEDS: Levothyroxine 88 MCG Tab PO SCH (05:47)
[2021-09-10 07:20] VITALS: BP 162/58; PULSE 58
[2021-09-10] MEDS: Metolazone 2.5 MG Tab PO SCH (08:10)
[2021-09-10] MEDS: Bumetanide 1 MG Tab PO SCH (08:11)
[2021-09-10] MEDS: Isosorbide Mononitrate 60 MG Tab.ER PO SCH (08:13)
[2021-09-10] MEDS: Losartan 50 MG Tab PO SCH (08:13)
[2021-09-10] MEDS: Vitamin B Complex Cap PO SCH (08:13)
[2021-09-10] MEDS: methylPREDNISolone 4 MG Tab 21 Tab/Dosepak PO SCH (08:16)
[2021-09-10] MEDS: Lidocaine 5% 700 MG Patch TOP SCH (08:17)
[2021-09-10] MEDS: Insulin Lispro 100 Units/ML 3 ML Vial SUBCUT SCH (08:18)
[2021-09-10] MEDS: Sodium Chloride 0.9% 10 ML Syringe FLUSH SCH (08:18)
[2021-09-11] MEDS ORDERED: Aspirin 81 MG Tab.EC PO SCH (09:00)
== END 2021-09-10 08:45 ==
LOC: DL.ED 17:31 → DL.MS 19:48
PROVIDERS: ADMIT Internal Medicine; ATTEND Internal Medicine
DX: M51.16 Intervertebral disc disorders with radiculopathy, lumbar region (principal); E78.00 Pure hypercholesterolemia, unspecified; I13.2 Hypertensive heart and chronic kidney disease with heart failure and with stage 5 chronic kidney disease, or end stage renal disease; E11.22 Type 2 diabetes mellitus with diabetic chronic kidney disease; E11.42 Type 2 diabetes mellitus with diabetic polyneuropathy; I50.30 Unspecified diastolic (congestive) heart failure; N18.6 End stage renal disease; G89.29 Other chronic pain; F17.210 Nicotine dependence, cigarettes, uncomplicated; E66.01 Morbid (severe) obesity due to excess calories; G47.33 Obstructive sleep apnea (adult) (pediatric); D63.1 Anemia in chronic kidney disease; R00.1 Bradycardia, unspecified; E21.3 Hyperparathyroidism, unspecified; Z88.8 Allergy status to other drugs, medicaments and biological substances; Z88.2 Allergy status to sulfonamides; Z91.048 Other nonmedicinal substance allergy status; Z66 Do not resuscitate; Z68.38 Body mass index [BMI] 38.0-38.9, adult; Z79.4 Long term (current) use of insulin; Z79.82 Long term (current) use of aspirin; Z79.899 Other long term (current) drug therapy; Z79.890 Hormone replacement therapy; Z99.2 Dependence on renal dialysis; Z20.822 Contact with and (suspected) exposure to COVID-19; Z98.890 Other specified postprocedural states; Z96.643 Presence of artificial hip joint, bilateral; Z87.442 Personal history of urinary calculi; Z87.441 Personal history of nephrotic syndrome; Z87.19 Personal history of other diseases of the digestive system; Z87.39 Personal history of other diseases of the musculoskeletal system and connective tissue
CPT/HCPCS: 36415; 73521; 80053; 81001; 82947; 83735; 84100; 85025; 96374; 96376; 99223; 99232; 99238; 99284; 99285; A9270; C9113; G0378; J0360; J1815; J3490; J7509; U0002

== ENCOUNTER 2023-01-13 06:01 | Emergency (ER) | payer MEDICARE, BC ==
[2023-01-13] MEDS ORDERED: Sodium Chloride 0.9% 10 ML Syringe FLUSH PRN (06:03)
[2023-01-13 06:47] LABS: BASOPHILS PERCENT AUTO 0.2 % (0.0-1.0); EOSINOPHILS PERCENT AUTO 2.2 % (1.0-3.0); HEMATOCRIT 36.4 % (40.0-54.0); HEMOGLOBIN 11.5 g/dL (14.0-18.0); MEAN CORPUSCULAR HEMOGLOBIN 28.4 pg (27.0-34.0); MEAN CORPUSCULAR HGB CONC 31.6 g/dL (33.0-35.0); MEAN CORPUSCULAR VOLUME 89.9 fL (80-100); MONOCYTES PERCENT AUTO 10.4 % (2-8); NEUTROPHILS PERCENT AUTO 62.2 % (42.2-75.2); PLATELET COUNT,PLT 196 10^3/uL (150-450); RED BLOOD CELL COUNT 4.05 10^6/uL (4.6-6.2); WHITE BLOOD CELL COUNT,WBC 8.5 10^3/uL (5.0-10.0)
[2023-01-13 06:53] VITALS: BP 130/88; PULSE 77
[2023-01-13 07:01] LABS: INR 2.9 (0.9-1.2); PROTHROMBIN TIME 28.2 SEC (9.0-12.0); PTT,PARTIAL THROMBOPLSTIN TIME 42.1 SEC (22.0-34.0)
[2023-01-13 07:06] LABS: ALANINE AMINOTRANSFERASE,ALT 31 U/L (16-63); ALBUMIN 3.3 g/dL (3.4-5.0); ALKALINE PHOSPHATASE 138 U/L (46-116); ANION GAP 22.8 mEq/L (7-13); ASPARTATE AMNIOTRANSFERASE,AST 15 U/L (15-37); BILIRUBIN TOTAL 0.3 mg/dL (0.2-1.0); BLOOD UREA NITROGEN,BUN 84 mg/dL (7-18); BUN/CREATININE RATIO 9.4 (No establ ref range); C-REACTIVE PROTEIN 1.8 mg/dL (0.0-0.9); CALCIUM 6.9 mg/dL (8.5-10.1); CARBON DIOXIDE,CO2 24 mmol/L (21-32); CHLORIDE,CL 96 mmol/L (98-107); GLUCOSE RANDOM 243 mg/dL (70-99); MAGNESIUM 1.7 mg/dL (1.8-2.4); PHOSPHORUS 6.8 mg/dL (2.6-4.7); POTASSIUM,K 5.8 mmol/L (3.5-5.1); PROTEIN TOTAL,TP 7.6 g/dL (6.4-8.2); SODIUM,NA 137 mmol/L (136-145)
[2023-01-13 07:07] LABS: A/G RATIO 0.77; ESTIMATED GFR 6 mL/min (>=60); ETHANOL BLOOD MEDICAL < 3 mg/dL (0)
[2023-01-13 07:10] LABS: LACTIC ACID 2.2 mmol/L (0.4-2.0)
[2023-01-13] MEDS ORDERED: Acetaminophen 325 MG Tab PO ONE (08:48)
== END 2023-01-13 09:03 ==
LOC: DL.ED 06:01
DX: R55 Syncope and collapse (principal); E11.65 Type 2 diabetes mellitus with hyperglycemia; E83.42 Hypomagnesemia; E83.51 Hypocalcemia; E87.5 Hyperkalemia; E83.39 Other disorders of phosphorus metabolism; R79.89 Other specified abnormal findings of blood chemistry; I12.0 Hypertensive chronic kidney disease with stage 5 chronic kidney disease or end stage renal disease; N18.6 End stage renal disease; D63.1 Anemia in chronic kidney disease; E11.9 Type 2 diabetes mellitus without complications; E03.9 Hypothyroidism, unspecified; E66.9 Obesity, unspecified; Z88.8 Allergy status to other drugs, medicaments and biological substances; Z79.82 Long term (current) use of aspirin; Z79.899 Other long term (current) drug therapy; Z79.4 Long term (current) use of insulin; Z99.2 Dependence on renal dialysis
CPT/HCPCS: 36415; 71045; 80053; 80307; 82140; 82947; 83605; 83735; 84100; 84145; 84484; 85025; 85610; 85730; 86140; 87040; 93005; 93010; 99285; A9270-GY

== ENCOUNTER 2023-05-11 11:52 | Emergency (ER) | payer MEDICARE, BC ==
[2023-05-11] MEDS ORDERED: Sodium Chloride 0.9% 10 ML Syringe FLUSH PRN (11:55)
[2023-05-11 12:51] LABS: HEMATOCRIT 33.6 % (40.0-54.0); HEMOGLOBIN 10.4 g/dL (14.0-18.0); MEAN CORPUSCULAR HEMOGLOBIN 29.5 pg (27.0-34.0); MEAN CORPUSCULAR VOLUME 95.5 fL (80-100); PLATELET COUNT,PLT 191 10^3/uL (150-450); RED BLOOD CELL COUNT 3.52 10^6/uL (4.6-6.2); WHITE BLOOD CELL COUNT,WBC 25.7 10^3/uL (5.0-10.0)
[2023-05-11 13:09] LABS: LYMPHOCYTES PERCENT AUTO 4.3 % (20.5-50.1); NEUTROPHILS PERCENT AUTO 92.2 % (42.2-75.2)
[2023-05-11 13:10] LABS: BASOPHILS PERCENT AUTO 0.1 % (0.0-1.0); MONOCYTES PERCENT AUTO 3.4 % (2-8)
[2023-05-11 13:13] LABS: ALANINE AMINOTRANSFERASE,ALT 16 U/L (16-63); ALBUMIN 2.2 g/dL (3.4-5.0); ALKALINE PHOSPHATASE 106 U/L (46-116); ANION GAP 19.3 mEq/L (7-13); ASPARTATE AMNIOTRANSFERASE,AST 26 U/L (15-37); BILIRUBIN TOTAL 0.3 mg/dL (0.2-1.0); BLOOD UREA NITROGEN,BUN 44 mg/dL (7-18); CALCIUM 8.9 mg/dL (8.5-10.1); CARBON DIOXIDE,CO2 21 mmol/L (21-32); CHLORIDE,CL 97 mmol/L (98-107); EST CRCL DRUG DOSING (CG) 10.72 mL/min; GLUCOSE RANDOM 187 mg/dL (70-99); POTASSIUM,K 4.3 mmol/L (3.5-5.1); PROTEIN TOTAL,TP 6.3 g/dL (6.4-8.2); SODIUM,NA 133 mmol/L (136-145)
[2023-05-11 13:19] LABS: CORONAVIRUS COVID-19 NAA NEGATIVE (NEGATIVE); INFLUENZA A NAA NEGATIVE (NEGATIVE); INFLUENZA B NAA NEGATIVE (NEGATIVE); RESPIRATORY SYNCYTIAL VIR NAA NEGATIVE (NEGATIVE)
[2023-05-11 13:19] LABS: B-TYPE NATRIURETIC PEPTIDE,BNP 4340 pg/ml (0-100)
[2023-05-11 13:23] LABS: INR 1.7 (0.9-1.2); PTT,PARTIAL THROMBOPLSTIN TIME 41.4 SEC (22.0-34.0)
[2023-05-11 13:31] LABS: A/G RATIO 0.54; C-REACTIVE PROTEIN > 25.00 ng/dL (<=0.50); CREATININE 6.32 mg/dL (0.70-1.30); ESTIMATED GFR 9 mL/min (>=60)
[2023-05-11 13:32] LABS: LACTIC ACID 2.7 mmol/L (0.4-2.0)
[2023-05-11 13:39] LABS: BAND PERCENT MAN 3 %; LYMPHOCYTES PERCENT MAN 6 % (20-50); MONOCYTES PERCENT MAN 2 % (2-8); SEG NEUTROPHILS PERCENT MAN 89 % (42-75)
[2023-05-11] MEDS ORDERED: Piperacillin/Tazobactam 3.375 GM in Sodium Chloride 0.9% 100 ML IV ONE (13:50)
[2023-05-11] MEDS ORDERED: Sodium Chloride 0.9% 1,000 ML IV ONE (13:50)
[2023-05-11] MEDS ORDERED: Norepinephrine Bit/D5W Premix 250 ML IV SCH (14:15)
[2023-05-11 15:46] LABS: APPEARANCE,URINE CLOUDY (CLEAR); BILIRUBIN,URINE NEGATIVE (NEGATIVE); COLOR,URINE YELLOW (YELLOW); GLUCOSE,URINE NEGATIVE (NEGATIVE); KETONES,URINE NEGATIVE (NEGATIVE); LEUKOCYTE ESTERASE,URINE TRACE (NEGATIVE); NITRITE,URINE NEGATIVE (NEGATIVE); OCCULT BLOOD,URINE MODERATE (NEGATIVE); PROTEIN,URINE 100 (NEGATIVE); UROBILINOGEN,URINE 0.2 mg/dL (0.2-1.0)
[2023-05-11 16:07] LABS: AMORPHOUS SEDIMENT,URINE MANY /HPF (NOT SEEN); BACTERIA,URINE MODERATE /HPF (0-FEW/HPF); EPITHELIAL CELLS,URINE FEW /HPF (NOT SEEN); MUCUS,URINE FEW /LPF (NOT SEEN); RBC,URINE 0-5 /HPF (0-5)
[2023-05-11] MEDS ORDERED: Acetaminophen 500 MG Tab PO ONE (16:17)
[2023-05-11 17:05] VITALS: BP 129/75; PULSE 107
== END 2023-05-11 17:05 ==
LOC: DL.ED 11:52
DX: N18.6 End stage renal disease (principal); A41.9 Sepsis, unspecified organism; D72.829 Elevated white blood cell count, unspecified; I12.0 Hypertensive chronic kidney disease with stage 5 chronic kidney disease or end stage renal disease; Z99.2 Dependence on renal dialysis; E11.22 Type 2 diabetes mellitus with diabetic chronic kidney disease; E11.40 Type 2 diabetes mellitus with diabetic neuropathy, unspecified; Z20.822 Contact with and (suspected) exposure to COVID-19; Z88.8 Allergy status to other drugs, medicaments and biological substances; E66.9 Obesity, unspecified; Z68.41 Body mass index [BMI] 40.0-44.9, adult; E03.9 Hypothyroidism, unspecified; Z79.4 Long term (current) use of insulin; Z79.01 Long term (current) use of anticoagulants; Z79.02 Long term (current) use of antithrombotics/antiplatelets; Z79.899 Other long term (current) drug therapy
CPT/HCPCS: 0241U; 36415; 80053; 81001; 83605; 83880; 85025; 85610; 85730; 86140; 87040; 87086; 96361; 96365; 99285; 99285-25; A9270-GY; J2543; J3490; J7030